=== PATIENT | female | born 1995 | race Caucasian/White ===

== ENCOUNTER 2016-12-14 19:03 | Emergency (ER) | payer BC ==
[2016-12-14 19:25] VITALS: PULSE 86; RESP 16
--- NOTE | 2016-12-14 19:47 | ED ---
General Adult HPI - General Chief complaint: Extremity Injury, Upper Stated complaint: left finger pain Time Seen by Provider: 12/14/16 19:24 Source: patient, RN notes reviewed Mode of arrival: ambulatory Limitations: no limitations - History of Present Illness Initial comments: This is a 21-year-old female who presents to the emergency department with chief complaint of left middle finger injury. Patient states that she jammed her finger approximately 1 month ago and was seen at [facility] urgent care. Patient states that she was told she had no fracture or dislocation. Since that time, she is still experiencing pain and states she is unable to flex her left middle finger. Denies fever, chills, chest pain, shortness of breath, abdominal pain, nausea or vomiting, constipation or diarrhea, dysuria or hematuria, numbness or tingling, headache or vision changes. - Related Data Allergies Allergy/AdvReac Type Severity Reaction Status Date / Time No Known Allergies Allergy Verified 12/14/16 19:25 Review of Systems ROS Statement: Those systems with pertinent positive or pertinent negative responses have been documented in the HPI. ROS Other: All systems not noted in ROS Statement are negative. Past Medical History Past Medical History: No Reported History History of Any Multi-Drug Resistant Organisms: None Reported Past Surgical History: No Surgical Hx Reported Past Psychological History: No Psychological Hx Reported Smoking Status: Never smoker Past Alcohol Use History: None Reported Past Drug Use History: None Reported General Exam - General Exam Comments Initial Comments: General: Awake and alert, well-developed; in no apparent distress. HEENT: Head atraumatic, normocephalic. Pupils are equal, round and reactive to light. Extraocular movements intact. Neck: Supple. Normal ROM. Cardiovascular: Regular rate and rhythm. No murmurs, rubs or gallops. Chest symmetrical. Respiratory: Lungs clear to auscultation bilaterally. No wheezes, rales or rhonchi. Normal respiratory effort with no use of accessory muscles. Musculoskeletal: Unable to flex the PIP joint of left third digit. Partial flexion of the DIP joint is intact. Sensation is intact. Radial pulses are 2+ equal and palpable bilaterally. There is swelling noted at the PIP joint. No erythema. Skin: [place], warm and dry without rashes or lesions. Neurological: Alert and oriented x3. CN II-XII grossly intact. Speech is fluent and answers are appropriate. No focal neuro deficits. Psychiatric: Normal mood and affect. No overt signs of depression or anxiety noted. Limitations: no limitations Course Vital Signs 12/14/16 19:22 Temperature 98.0 F Pulse Rate 86 Respiratory 16 Rate Blood Pressure 145/70 O2 Sat by Pulse 99 Oximetry Procedures - Orthopedic Joint Reduction Joint #1 Consent Obtained: verbal consent Side: left Joint Reduction Location: finger (middle digit) Analgesia: digital block Local Anesthetic Used: Lidocaine 1% Amount of Anesthetic Used (mLs): 2 Technique Used: traction/counter-traction Post-Reduction Neuro Exam: intact Post-Reduction Vascular Exam: intact Post Reduction X-Ray Obtained: Yes Post Reduction X-Ray Results: not reduced Splint Applied: Yes Patient Tolerated Procedure: well, no complications Medical Decision Making - Medical Decision Making This is a 21-year-old female who presents to the emergency department with chief complaint of left middle finger injury. Patient is unable to flex the PIP joint of left third digit. X-ray revealed a partial posterior dislocation at PIP joint and a chip-fracture at anterior base of middle phalanx. Joint reduction was attempted and post-reduction x-ray revealed reduction was unsuccessful. Finger was placed in a splint. Neurovascularly intact. She will be discharged home with a referral to Dr. Del Angel, hand surgery. She was advised to call and follow up within 1-2 days. Patient is in agreement with plan voices understanding. All questions were answered. - Radiology Data Radiology results: report reviewed Left third digit x-ray findings: There is posterior subluxation of the base of the middle phalanx of the middle finger left hand on the lateral view. There is a 4 mm nondisplaced chip fracture of the anterior base. Impression: Intra- articular chip fracture at the anterior base of the middle phalanx. There is a partial posterior dislocation the PIP joint. Soft tissue swelling. Disposition Clinical Impression: Injury of flexor tendon of left hand, Fracture/dislocation, finger, proximal/ middle phalanx Disposition: HOME SELF-CARE Condition: Good Instructions: Tendon Rupture (ED) Additional Instructions: Please follow up with primary care provider within 1-2 days. Return to emergency department if symptoms should worsen or any concerns arise. Referrals: None,Stated [Primary Care Provider] - 1-2 days Arsenio Del Angel DO [Doctor of Osteopathic Medicine] - 1-2 days Time of Disposition: 20:57
--- NOTE | 2016-12-14 19:50 | XR ---
EXAMINATION TYPE: XR finger LT DATE OF EXAM: 12/14/2016 COMPARISON: NONE HISTORY: Pain TECHNIQUE: 3 views FINDINGS: There is posterior subluxation of the base of the middle phalanx of the middle finger left hand on the lateral view. There is a 4 mm nondisplaced chip fracture of the anterior base. IMPRESSION: Intra-articular chip fracture of the anterior base of the middle phalanx. There is a part ial posterior dislocation of the PIP joint. Soft tissue swelling.
--- NOTE | 2016-12-14 20:41 | XR ---
EXAMINATION TYPE: XR finger LT DATE OF EXAM: 12/14/2016 COMPARISON: Today HISTORY: Post reduction TECHNIQUE: 3 views FINDINGS: There is persistent mild posterior subluxation of the base of the middle phalanx phalanx of the middle finger. There is soft tissue swelling. No fracture line is seen. IMPRESSION: Persistent partial posterior dislocation of the PIP joint.
[2016-12-14 21:16] VITALS: BP 145/73; TEMP 97.9
== END 2016-12-14 21:16 | disposition home or self-care (01) ==
LOC: EC 19:03
DX: S66.902A Unspecified injury of unspecified muscle, fascia and tendon at wrist and hand level, left hand, initial encounter (principal); S63.283A Dislocation of proximal interphalangeal joint of left middle finger, initial encounter; S62.653A Nondisplaced fracture of middle phalanx of left middle finger, initial encounter for closed fracture
CPT/HCPCS: 26770; 99283

== ENCOUNTER 2017-02-16 08:58 | Emergency (ER) | payer BC ==
[2017-02-16] MEDS ORDERED: ONDANSETRON ODT 4 MG TAB PO STA (09:15)
--- NOTE | 2017-02-16 09:17 | ED ---
Pediatric Fever HPI - General Chief Complaint: Fever Stated Complaint: Fever Time Seen by Provider: 02/16/17 09:08 Source: patient, RN notes reviewed Mode of arrival: ambulatory Limitations: no limitations - History of Present Illness Initial Comments: This a 21-year-old female presents emergency Department with chief complaint of fever, not feeling well. Patient states symptoms started yesterday with nausea vomiting cough congestion. She states that vomiting has resolved and she still some residual nausea. Patient states she had no contacts with some her symptoms. She states she does feel achy all over. She denies sore throat, ear pain states that she does have mild headache. She tried some NyQuil lateral to him. Patient denies any abdominal pain she states there is a chance . Patient denies any known drug ALLERGIES. - Related Data Home Medications Medication Instructions Recorded Confirmed Dm/Acetaminophen/Doxylamine [Vicks 1 cap PO Q6H PRN 02/16/17 02/16/17 Nyquil Liquicaps] Previous Rx's Medication Instructions Recorded Oseltamivir [Tamiflu] 75 mg PO Q12HR #10 cap 02/16/17 Allergies Allergy/AdvReac Type Severity Reaction Status Date / Time No Known Allergies Allergy Verified 02/16/17 09:16 Review of Systems ROS Statement: Those systems with pertinent positive or pertinent negative responses have been documented in the HPI. ROS Other: All systems not noted in ROS Statement are negative. Past Medical History Past Medical History: No Reported History History of Any Multi-Drug Resistant Organisms: None Reported Past Surgical History: Orthopedic Surgery Additional Past Surgical History / Comment(s): finger Past Psychological History: No Psychological Hx Reported Smoking Status: Never smoker Past Alcohol Use History: None Reported Past Drug Use History: Marijuana General Exam Limitations: no limitations General appearance: alert, in no apparent distress Head exam: Present: atraumatic, normocephalic, normal inspection Eye exam: Present: normal appearance, PERRL, EOMI. Absent: scleral icterus, conjunctival injection, periorbital swelling ENT exam: Present: normal exam, normal oropharynx, mucous membranes moist, TM's normal bilaterally, normal external ear exam Neck exam: Present: normal inspection, full ROM. Absent: tenderness, meningismus, lymphadenopathy Respiratory exam: Present: normal lung sounds bilaterally. Absent: respiratory distress, wheezes, rales, rhonchi, stridor Cardiovascular Exam: Present: regular rate, normal rhythm, normal heart sounds. Absent: systolic murmur, diastolic murmur, rubs, gallop, clicks GI/Abdominal exam: Present: soft, normal bowel sounds. Absent: distended, tenderness, guarding, rebound, rigid Back exam: Absent: CVA tenderness (R), CVA tenderness (L) Skin exam: Present: warm, dry, intact, normal color. Absent: rash Course Vital Signs 02/16/17 08:59 Temperature 99.4 F Pulse Rate 102 H Respiratory 17 Rate Blood Pressure 132/77 O2 Sat by Pulse 98 Oximetry Medical Decision Making - Medical Decision Making 21-year-old female presented for fever cough congestion body aches. Patient has influenza A. Patient we discharged on Tamiflu. Return parameters were discussed. - Lab Data Lab Results 02/16/17 02/16/17 02/16/17 Range/Units 09:18 09:18 09:18 Urine Color Yellow Urine Appearance Clear (Clear) Urine pH 6.0 (5.0-8.0) Ur Specific [place] 1.032 (1.001-1.035) Urine Protein 1+ H (Negative) Urine Glucose (UA) Negative (Negative) Urine Blood Negative (Negative) Urine Nitrite Negative (Negative) Urine Bilirubin Negative (Negative) Urine Urobilinogen 3.0 (<2.0) mg/dL Ur Leukocyte Esterase Negative (Negative) Urine RBC 2 (0-5) /hpf Urine WBC 2 (0-5) /hpf Ur Squamous Epith Cells 2 (0-4) /hpf Urine Bacteria Rare H (None) /hpf Urine Mucus Few H (None) /hpf Urine HCG, Qual Not Detected (Not Detectd) Influenza Type A RNA Detected H (Not Detectd) Influenza Type B (PCR) Not Detected (Not Detectd) Disposition Clinical Impression: Influenza Disposition: HOME SELF-CARE Condition: Stable Instructions: Influenza (ED) Additional Instructions: Please return to the Emergency Department if symptoms worsen or any other concerns. Prescriptions: Oseltamivir [Tamiflu] 75 mg PO Q12HR #10 cap Referrals: None,Stated [Primary Care Provider] - 1-2 days Time of Disposition: 10:36
[2017-02-16 09:32] LABS: Appearance,Urine Clear (Clear); Bacteria,Urine Rare /hpf; Bilirubin,Urine Negative (Negative); Blood,Urine Negative (Negative); Color,Urine Yellow; Glucose,Urine (UA) Negative (Negative); Ketones,Urine 4+ (Negative); Leukocyte Esterase,Urine Negative (Negative); Mucus,Urine Few /hpf; Nitrite,Urine Negative (Negative); Protein,Urine 1+ (Negative); RBC,Urine 2 /hpf (0-5); Specific Gravity,Urine 1.032 (1.001-1.035); Squamous Epithelial Cell,Urine 2 /hpf (0-4); WBC,Urine 2 /hpf (0-5)
[2017-02-16] MEDS ORDERED: OSELTAMIVIR 75 MG CAP PO STA (09:41)
--- NOTE | 2017-02-16 10:18 | XR ---
EXAMINATION TYPE: XR chest 2V DATE OF EXAM: 02/16/2017 COMPARISON: NONE HISTORY: Fever and cough TECHNIQUE: Frontal and lateral views of the chest are obtained. FINDINGS: There is no focal air space opacity, pleural effusion, or pneumothorax seen. The cardiac silhouette size is within normal limits. The osseous structures are intact. Metallic nipple rings a re noted bilaterally. IMPRESSION: No acute cardiopulmonary process.
[2017-02-16 10:59] VITALS: BP 130/70; PULSE 78; RESP 16; TEMP 98.9
== END 2017-02-16 10:58 | disposition home or self-care (01) ==
LOC: EC 08:58
DX: J09.X2 Influenza due to identified novel influenza A virus with other respiratory manifestations (principal)
CPT/HCPCS: 71046; 81001; 81025; 87502; 99283

== ENCOUNTER 2017-06-07 12:16 | Emergency (ER) | payer BC ==
[2017-06-07] MEDS ORDERED: SODIUM CHLORIDE 0.9% 1,000 ML IV STA (13:01)
[2017-06-07] MEDS ORDERED: ONDANSETRON 4 MG/2 ML VIAL IVP STA (13:01)
--- NOTE | 2017-06-07 13:04 | ED ---
Nausea/Vomiting/Diarrhea HPI - General Chief complaint: Nausea/Vomiting/Diarrhea Stated complaint: vomiting Time Seen by Provider: 06/07/17 12:55 Source: patient, RN notes reviewed Mode of arrival: ambulatory Limitations: no limitations - History of Present Illness Initial comments: This is a 21-year-old female who presents to the emergency department with chief complaint of vomiting. Patient states that she developed episodes of vomiting yesterday at 11 AM. She states that while she was vomiting she developed diarrhea. She states that last night between 6 PM and 1 AM she vomited about every half an hour. She denies any sick contacts. Denies abdominal pain, fevers or chills, melena or hematochezia. Chest pain or shortness of breath, dysuria or hematuria. States that her last episode of vomiting was over 1 hour ago. - Related Data Previous Rx's Medication Instructions Recorded Cephalexin [Keflex] 500 mg PO Q12HR #20 cap 06/07/17 Allergies Allergy/AdvReac Type Severity Reaction Status Date / Time No Known Allergies Allergy Verified 06/07/17 12:33 Review of Systems ROS Statement: Those systems with pertinent positive or pertinent negative responses have been documented in the HPI. ROS Other: All systems not noted in ROS Statement are negative. Past Medical History Past Medical History: No Reported History History of Any Multi-Drug Resistant Organisms: None Reported Past Surgical History: Orthopedic Surgery Additional Past Surgical History / Comment(s): finger Past Psychological History: No Psychological Hx Reported Smoking Status: Never smoker Past Alcohol Use History: None Reported Past Drug Use History: Marijuana General Exam - General Exam Comments Initial Comments: General: Awake and alert, well-developed; in no apparent distress. Mother is at bedside. HEENT: Head atraumatic, normocephalic. Pupils are equal, round and reactive to light. Extraocular movements intact. Oropharynx moist without erythema or exudate. Neck: Supple. Normal ROM. Cardiovascular: Regular rate and rhythm. No murmurs, rubs or gallops. Chest symmetrical. Respiratory: Lungs clear to auscultation bilaterally. No wheezes, rales or rhonchi. Normal respiratory effort with no use of accessory muscles. Abdomen: Soft, non-tender, non-distended. No rigidity, rebound or guarding. Normal bowel sounds in all 4 quadrants. Musculoskeletal: Normal ROM, no tenderness bilateral upper and lower extremities. Ambulating normally. Skin: [place], warm and dry without rashes or lesions. Neurological: Alert and oriented x3. CN II-XII grossly intact. Speech is fluent and answers are appropriate. No focal neuro deficits. Psychiatric: Normal mood and affect. No overt signs of depression or anxiety noted. Limitations: no limitations Course Vital Signs 06/07/17 12:31 Temperature 97.8 F Pulse Rate 84 Respiratory 20 Rate Blood Pressure 124/65 O2 Sat by Pulse 98 Oximetry Medical Decision Making - Medical Decision Making This is a 21-year-old female presents to the emergency department with chief complaint of vomiting. Patient states that she has been vomiting and having diarrhea since yesterday. Denies fevers or chills. CBC and CMP were within normal limits. Urine revealed positive hCG. I discussed these findings with patient and her mother. Patient states that she is not having any vaginal bleeding or abdominal pain. UA did reveal bacteria so patient will be started on Keflex for asymptomatic bacteriuria. She will also be given a prescription for vitamins. Patient's vital signs are stable and she is in no acute distress. She will be discharged home at this time. She will be given referral to [facility] and primary care physician. Patient is in agreement with plan and voices understanding. All questions were answered. - Lab Data Result diagrams: 06/07/17 13:10 06/07/17 13:10 Lab Results 06/07/17 06/07/17 06/07/17 Range/Units 13:10 13:10 13:10 WBC 9.7 (4.0-11.0) k/uL RBC 4.74 (3.80-5.40) m/uL Hgb 15.1 (11.4-16.0) gm/dL Hct 42.5 (34.0-46.0) % MCV 89.5 (80.0-100.0) fL MCH 31.9 (25.0-35.0) pg MCHC 35.6 (31.0-37.0) g/dL RDW 12.0 (11.5-15.5) % Plt Count 243 (150-450) k/uL Neutrophils % 89 % Lymphocytes % 7 % Monocytes % 4 % Eosinophils % 0 % Basophils % 0 % Neutrophils # 8.6 H (1.3-7.7) k/uL Lymphocytes # 0.7 L (1.0-4.8) k/uL Monocytes # 0.4 (0-1.0) k/uL Eosinophils # 0.0 (0-0.7) k/uL Basophils # 0.0 (0-0.2) k/uL Sodium 138 (137-145) mmol/L Potassium 3.8 (3.5-5.1) mmol/L Chloride 103 (98-107) mmol/L Carbon Dioxide 24 (22-30) mmol/L Anion Gap 11 mmol/L BUN 13 (7-17) mg/dL Creatinine 0.55 (0.52-1.04) mg/dL Est GFR (CKD-EPI)AfAm >90 (>60 ml/min/1.73 sqM) Est GFR (CKD-EPI)NonAf >90 (>60 ml/min/1.73 sqM) Glucose 118 H (74-99) mg/dL Calcium 9.7 (8.4-10.2) mg/dL Total Bilirubin 0.6 (0.2-1.3) mg/dL AST 22 (14-36) U/L ALT 26 (9-52) U/L Alkaline Phosphatase 58 (38-126) U/L Total Protein 6.8 (6.3-8.2) g/dL Albumin 4.3 (3.5-5.0) g/dL Amylase 57 (30-110) U/L Lipase 55 (23-300) U/L Urine Color Urine Appearance (Clear) Urine pH (5.0-8.0) Ur Specific [place] (1.001-1.035) Urine Protein (Negative) Urine Glucose (UA) (Negative) Urine Ketones (Negative) Urine Blood (Negative) Urine Nitrite (Negative) Urine Bilirubin (Negative) Urine Urobilinogen (<2.0) mg/dL Ur Leukocyte Esterase (Negative) Urine RBC (0-5) /hpf Urine WBC (0-5) /hpf Ur Squamous Epith Cells (0-4) /hpf Urine Bacteria (None) /hpf Urine Mucus (None) /hpf Urine HCG, Qual Detected (Not Detectd) 06/07/17 Range/Units 13:10 WBC (4.0-11.0) k/uL RBC (3.80-5.40) m/uL Hgb (11.4-16.0) gm/dL Hct (34.0-46.0) % MCV (80.0-100.0) fL MCH (25.0-35.0) pg MCHC (31.0-37.0) g/dL RDW (11.5-15.5) % Plt Count (150-450) k/uL Neutrophils % % Lymphocytes % % Monocytes % % Eosinophils % % Basophils % % Neutrophils # (1.3-7.7) k/uL Lymphocytes # (1.0-4.8) k/uL Monocytes # (0-1.0) k/uL Eosinophils # (0-0.7) k/uL Basophils # (0-0.2) k/uL Sodium (137-145) mmol/L Potassium (3.5-5.1) mmol/L Chloride (98-107) mmol/L Carbon Dioxide (22-30) mmol/L Anion Gap mmol/L BUN (7-17) mg/dL Creatinine (0.52-1.04) mg/dL Est GFR (CKD-EPI)AfAm (>60 ml/min/1.73 sqM) Est GFR (CKD-EPI)NonAf (>60 ml/min/1.73 sqM) Glucose (74-99) mg/dL Calcium (8.4-10.2) mg/dL Total Bilirubin (0.2-1.3) mg/dL AST (14-36) U/L ALT (9-52) U/L Alkaline Phosphatase (38-126) U/L Total Protein (6.3-8.2) g/dL Albumin (3.5-5.0) g/dL Amylase (30-110) U/L Lipase (23-300) U/L Urine Color Yellow Urine Appearance Cloudy H (Clear) Urine pH 6.5 (5.0-8.0) Ur Specific [place] 1.033 (1.001-1.035) Urine Protein 1+ H (Negative) Urine Glucose (UA) Negative (Negative) Urine Ketones 1+ H (Negative) Urine Blood Negative (Negative) Urine Nitrite Negative (Negative) Urine Bilirubin Negative (Negative) Urine Urobilinogen 3.0 (<2.0) mg/dL Ur Leukocyte Esterase Negative (Negative) Urine RBC 1 (0-5) /hpf Urine WBC 3 (0-5) /hpf Ur Squamous Epith Cells 1 (0-4) /hpf Urine Bacteria Rare H (None) /hpf Urine Mucus Few H (None) /hpf Urine HCG, Qual (Not Detectd) Disposition Clinical Impression: , Nausea and vomiting, Asymptomatic bacteriuria Disposition: HOME SELF-CARE Condition: Good Instructions: (ED), Nausea and Vomiting in (ED), Urinary Tract Infection in (ED) Additional Instructions: Please follow-up with Dr. Mejia, [facility] within 1-2 days. Please take medications as prescribed. Please follow up with primary care provider within 1- 2 days. Return to emergency department if symptoms should worsen or any concerns arise. Prescriptions: Cephalexin [Keflex] 500 mg PO Q12HR #20 cap Is patient prescribed a controlled substance at d/c from ED?: No Referrals: None,Stated [Primary Care Provider] - 1-2 days Roseline Mejia DO [Doctor of Osteopathic Medicine] - 1-2 days Chantelle Zuluaga MD [REFERRING] - 1-2 days Deepika Santoro MD [REFERRING] - 1-2 days Time of Disposition: 14:14
[2017-06-07 13:26] LABS: Basophils % (A) 0 %; Eosinophils % (A) 0 %; HCT 42.5 % (34.0-46.0); HGB 15.1 gm/dL (11.4-16.0); Lymphocytes # (A) 0.7 k/uL (1.0-4.8); Lymphocytes % (A) 7 %; MCH 31.9 pg (25.0-35.0); MCHC 35.6 g/dL (31.0-37.0); MCV 89.5 fL (80.0-100.0); Mean Platelet Volume 7.3; Monocytes # (A) 0.4 k/uL (0-1.0); Monocytes % (A) 4 %; Neutrophils # (A) 8.6 k/uL (1.3-7.7); Neutrophils % (A) 89 %; Platelet Count 243 k/uL (150-450); RBC 4.74 m/uL (3.80-5.40); WBC 9.7 k/uL (4.0-11.0)
[2017-06-07 13:43] LABS: ALT 26 U/L (9-52); AST 22 U/L (14-36); Albumin 4.3 g/dL (3.5-5.0); Alkaline Phosphatase 58 U/L (38-126); Amylase 57 U/L (30-110); Anion Gap 11 mmol/L; Blood Urea Nitrogen 13 mg/dL (7-17); Calcium 9.7 mg/dL (8.4-10.2); Carbon Dioxide 24 mmol/L (22-30); Chloride 103 mmol/L (98-107); Glucose 118 mg/dL (74-99); Lipase 55 U/L (23-300); Potassium 3.8 mmol/L (3.5-5.1); Sodium 138 mmol/L (137-145); Total Bilirubin 0.6 mg/dL (0.2-1.3); Total Protein 6.8 g/dL (6.3-8.2)
[2017-06-07 13:44] LABS: Appearance,Urine Cloudy (Clear); Bacteria,Urine Rare /hpf; Bilirubin,Urine Negative (Negative); Blood,Urine Negative (Negative); Color,Urine Yellow; Glucose,Urine (UA) Negative (Negative); Ketones,Urine 1+ (Negative); Leukocyte Esterase,Urine Negative (Negative); Mucus,Urine Few /hpf; Nitrite,Urine Negative (Negative); PH, Urine 6.5 (5.0-8.0); Protein,Urine 1+ (Negative); RBC,Urine 1 /hpf (0-5); Specific Gravity,Urine 1.033 (1.001-1.035); Squamous Epithelial Cell,Urine 1 /hpf (0-4); WBC,Urine 3 /hpf (0-5)
[2017-06-07 14:24] VITALS: BP 124/70; PULSE 70; RESP 18; TEMP 98.5
== END 2017-06-07 14:24 | disposition home or self-care (01) ==
LOC: EC 12:16
DX: O21.9 Vomiting of pregnancy, unspecified (principal); R82.71 Bacteriuria; O99.89 Other specified diseases and conditions complicating pregnancy, childbirth and the puerperium; R19.7 Diarrhea, unspecified; Z32.01 Encounter for pregnancy test, result positive; Z3A.00 Weeks of gestation of pregnancy not specified
CPT/HCPCS: 36415; 80053; 82150; 83690; 85025; 81001; 81025; 99284; 96374; 96361; J2405

== ENCOUNTER 2017-06-14 14:03 | Emergency (ER) | payer BC ==
[2017-06-14 14:27] VITALS: RESP 18; TEMP 98
[2017-06-14] MEDS ORDERED: METOCLOPRAMIDE 5 MG/ML 2 ML VIAL IVP STA (16:11)
[2017-06-14] MEDS ORDERED: SODIUM CHLORIDE 0.9% 1,000 ML IV STA (16:11)
--- NOTE | 2017-06-14 16:31 | ED ---
Nausea/Vomiting/Diarrhea HPI - General Chief complaint: Nausea/Vomiting/Diarrhea Stated complaint: Vomiting, dehydrated- Time Seen by Provider: 06/14/17 15:51 Source: patient, RN notes reviewed, old records reviewed Mode of arrival: ambulatory Limitations: no limitations - History of Present Illness Initial comments: Patient is a 21-year-old female presents with vomiting for the past two days. She is approximately seven weeks . She denies any significant and pati pain with this. She reports that she's had a fever chills. Normal bowel habits and urination. - Related Data Previous Rx's Medication Instructions Recorded Cephalexin [Keflex] 500 mg PO Q12HR #20 cap 06/07/17 Metoclopramide [Reglan] 5 mg PO ACHS #15 tab 06/14/17 Pyridoxine HCl (Vitamin B6) 100 mg PO DAILY #10 tablet 06/14/17 [Vitamin B-6] Allergies Allergy/AdvReac Type Severity Reaction Status Date / Time No Known Allergies Allergy Verified 06/14/17 16:13 Review of Systems ROS Statement: Those systems with pertinent positive or pertinent negative responses have been documented in the HPI. ROS Other: All systems not noted in ROS Statement are negative. Constitutional: Denies: fever, chills Eyes: Denies: eye pain ENT: Denies: ear pain, throat pain Respiratory: Denies: cough, dyspnea Cardiovascular: Denies: chest pain Endocrine: Denies: fatigue Gastrointestinal: Reports: nausea, vomiting. Denies: abdominal pain Genitourinary: Denies: urgency, dysuria Musculoskeletal: Denies: back pain Skin: Denies: rash, lesions Past Medical History Past Medical History: No Reported History History of Any Multi-Drug Resistant Organisms: None Reported Past Surgical History: Orthopedic Surgery Additional Past Surgical History / Comment(s): finger Past Psychological History: No Psychological Hx Reported Smoking Status: Never smoker Past Alcohol Use History: None Reported Past Drug Use History: Marijuana General Exam - General Exam Comments Initial Comments: 21 year old female, no distress. Limitations: no limitations General appearance: alert, in no apparent distress Head exam: Present: atraumatic, normocephalic, normal inspection Eye exam: Present: normal appearance, PERRL, EOMI. Absent: scleral icterus, conjunctival injection, periorbital swelling ENT exam: Present: normal exam, mucous membranes moist Neck exam: Present: normal inspection. Absent: tenderness, meningismus, lymphadenopathy Respiratory exam: Present: normal lung sounds bilaterally. Absent: respiratory distress, wheezes, rales, rhonchi, stridor Cardiovascular Exam: Present: regular rate, normal rhythm, normal heart sounds. Absent: systolic murmur, diastolic murmur, rubs, gallop, clicks GI/Abdominal exam: Present: soft, normal bowel sounds. Absent: distended, tenderness, guarding, rebound, rigid Back exam: Present: normal inspection Neurological exam: Present: alert, oriented X3, CN II-XII intact Psychiatric exam: Present: normal affect, normal mood Skin exam: Present: warm, dry, intact, normal color. Absent: rash Course Vital Signs 06/14/17 06/14/17 06/14/17 14:25 17:16 18:56 Temperature 98.0 F Pulse Rate 80 64 65 Respiratory 18 18 18 Rate Blood Pressure 115/65 128/65 148/70 O2 Sat by Pulse 98 98 100 Oximetry Medical Decision Making - Medical Decision Making PAtient was giaven IV fluids, labs obtained. Unremarkable. Ketones in urine, given 2L of fluids. Patient US shows 6 weeks and 2 day old fetus. No complicating factor. She was already placed on antibiotics for bacteriuria in last week, still taking them. Patient advised to take Vitamin B6, and reglan. REturn parameters discused. She feels better after medications. - Lab Data Result diagrams: 06/14/17 16:30 06/14/17 16:30 Lab Results 06/14/17 06/14/17 06/14/17 Range/Units 16:30 16:30 16:30 WBC 8.3 (4.0-11.0) k/uL RBC 4.65 (3.80-5.40) m/uL Hgb 14.5 (11.4-16.0) gm/dL Hct 41.6 (34.0-46.0) % MCV 89.4 (80.0-100.0) fL MCH 31.1 (25.0-35.0) pg MCHC 34.8 (31.0-37.0) g/dL RDW 12.2 (11.5-15.5) % Plt Count 230 (150-450) k/uL Neutrophils % 78 % Lymphocytes % 16 % Monocytes % 4 % Eosinophils % 1 % Basophils % 0 % Neutrophils # 6.4 (1.3-7.7) k/uL Lymphocytes # 1.3 (1.0-4.8) k/uL Monocytes # 0.4 (0-1.0) k/uL Eosinophils # 0.1 (0-0.7) k/uL Basophils # 0.0 (0-0.2) k/uL Sodium 137 (137-145) mmol/L Potassium 4.0 (3.5-5.1) mmol/L Chloride 103 (98-107) mmol/L Carbon Dioxide 22 (22-30) mmol/L Anion Gap 12 mmol/L BUN 8 (7-17) mg/dL Creatinine 0.50 L (0.52-1.04) mg/dL Est GFR (CKD-EPI)AfAm >90 (>60 ml/min/1.73 sqM) Est GFR (CKD-EPI)NonAf >90 (>60 ml/min/1.73 sqM) Glucose 92 (74-99) mg/dL Calcium 9.4 (8.4-10.2) mg/dL Total Bilirubin 0.5 (0.2-1.3) mg/dL AST 19 (14-36) U/L ALT 24 (9-52) U/L Alkaline Phosphatase 51 (38-126) U/L Total Protein 6.5 (6.3-8.2) g/dL Albumin 4.1 (3.5-5.0) g/dL Amylase 56 (30-110) U/L Lipase 51 (23-300) U/L HCG, Quant 69414.0 mIU/mL Urine Color Urine Appearance (Clear) Urine pH (5.0-8.0) Ur Specific [place] (1.001-1.035) Urine Protein (Negative) Urine Glucose (UA) (Negative) Urine Ketones (Negative) Urine Blood (Negative) Urine Nitrite (Negative) Urine Bilirubin (Negative) Urine Urobilinogen (<2.0) mg/dL Ur Leukocyte Esterase (Negative) Urine RBC (0-5) /hpf Urine WBC (0-5) /hpf Ur Squamous Epith Cells (0-4) /hpf Urine Bacteria (None) /hpf Urine Mucus (None) /hpf Urine Yeast (Budding) (None) /hpf Blood Type A Positive Blood Type Recheck No 06/14/17 Range/Units 16:30 WBC (4.0-11.0) k/uL RBC (3.80-5.40) m/uL Hgb (11.4-16.0) gm/dL Hct (34.0-46.0) % MCV (80.0-100.0) fL MCH (25.0-35.0) pg MCHC (31.0-37.0) g/dL RDW (11.5-15.5) % Plt Count (150-450) k/uL Neutrophils % % Lymphocytes % % Monocytes % % Eosinophils % % Basophils % % Neutrophils # (1.3-7.7) k/uL Lymphocytes # (1.0-4.8) k/uL Monocytes # (0-1.0) k/uL Eosinophils # (0-0.7) k/uL Basophils # (0-0.2) k/uL Sodium (137-145) mmol/L Potassium (3.5-5.1) mmol/L Chloride (98-107) mmol/L Carbon Dioxide (22-30) mmol/L Anion Gap mmol/L BUN (7-17) mg/dL Creatinine (0.52-1.04) mg/dL Est GFR (CKD-EPI)AfAm (>60 ml/min/1.73 sqM) Est GFR (CKD-EPI)NonAf (>60 ml/min/1.73 sqM) Glucose (74-99) mg/dL Calcium (8.4-10.2) mg/dL Total Bilirubin (0.2-1.3) mg/dL AST (14-36) U/L ALT (9-52) U/L Alkaline Phosphatase (38-126) U/L Total Protein (6.3-8.2) g/dL Albumin (3.5-5.0) g/dL Amylase (30-110) U/L Lipase (23-300) U/L HCG, Quant mIU/mL Urine Color Yellow Urine Appearance Cloudy H (Clear) Urine pH 7.5 (5.0-8.0) Ur Specific [place] 1.023 (1.001-1.035) Urine Protein 1+ H (Negative) Urine Glucose (UA) Negative (Negative) Urine Ketones 4+ H (Negative) Urine Blood Negative (Negative) Urine Nitrite Negative (Negative) Urine Bilirubin Negative (Negative) Urine Urobilinogen 3.0 (<2.0) mg/dL Ur Leukocyte Esterase Negative (Negative) Urine RBC 6 H (0-5) /hpf Urine WBC 13 H (0-5) /hpf Ur Squamous Epith Cells 2 (0-4) /hpf Urine Bacteria Many H (None) /hpf Urine Mucus Few H (None) /hpf Urine Yeast (Budding) Few H (None) /hpf Blood Type Blood Type Recheck - Radiology Data Radiology results: report reviewed Single IUP is confirmed crown-rump length 0.6 cm, spine was 6 weeks and 2 days. Disposition Clinical Impression: Nausea and vomiting, Disposition: HOME SELF-CARE Condition: Good Instructions: Acute Nausea and Vomiting (ED) Additional Instructions: Patient advised to take the medications to help with nausea. Make sure taking vitamin. Follow-up with primary care provider and RETURN CHECKER. Prescriptions: Metoclopramide [Reglan] 5 mg PO ACHS #15 tab Pyridoxine HCl (Vitamin B6) [Vitamin B-6] 100 mg PO DAILY #10 tablet Is patient prescribed a controlled substance at d/c from ED?: No If prescribed controlled substance>3 days was MAPS reviewed?: No When asked, does pt state using other controlled substances?: No Referrals: None,Stated [Primary Care Provider] - 1-2 days Time of Disposition: 18:36
[2017-06-14 16:44] LABS: Basophils % (A) 0 %; Eosinophils # (A) 0.1 k/uL (0-0.7); Eosinophils % (A) 1 %; HCT 41.6 % (34.0-46.0); HGB 14.5 gm/dL (11.4-16.0); Lymphocytes # (A) 1.3 k/uL (1.0-4.8); Lymphocytes % (A) 16 %; MCH 31.1 pg (25.0-35.0); MCHC 34.8 g/dL (31.0-37.0); MCV 89.4 fL (80.0-100.0); Mean Platelet Volume 7.6; Monocytes # (A) 0.4 k/uL (0-1.0); Monocytes % (A) 4 %; Neutrophils # (A) 6.4 k/uL (1.3-7.7); Neutrophils % (A) 78 %; Platelet Count 230 k/uL (150-450); RBC 4.65 m/uL (3.80-5.40); RDW 12.2 % (11.5-15.5); WBC 8.3 k/uL (4.0-11.0)
[2017-06-14 16:56] LABS: ALT 24 U/L (9-52); AST 19 U/L (14-36); Albumin 4.1 g/dL (3.5-5.0); Alkaline Phosphatase 51 U/L (38-126); Amylase 56 U/L (30-110); Anion Gap 12 mmol/L; Blood Urea Nitrogen 8 mg/dL (7-17); Calcium 9.4 mg/dL (8.4-10.2); Carbon Dioxide 22 mmol/L (22-30); Chloride 103 mmol/L (98-107); Glucose 92 mg/dL (74-99); Lipase 51 U/L (23-300); Sodium 137 mmol/L (137-145); Total Bilirubin 0.5 mg/dL (0.2-1.3); Total Protein 6.5 g/dL (6.3-8.2)
[2017-06-14 17:04] LABS: Appearance,Urine Cloudy (Clear); Bacteria,Urine Many /hpf; Bilirubin,Urine Negative (Negative); Blood,Urine Negative (Negative); Budding Yeast,Urine Few /hpf; Color,Urine Yellow; Glucose,Urine (UA) Negative (Negative); Ketones,Urine 4+ (Negative); Leukocyte Esterase,Urine Negative (Negative); Mucus,Urine Few /hpf; Nitrite,Urine Negative (Negative); PH, Urine 7.5 (5.0-8.0); Protein,Urine 1+ (Negative); RBC,Urine 6 /hpf (0-5); Specific Gravity,Urine 1.023 (1.001-1.035); Squamous Epithelial Cell,Urine 2 /hpf (0-4); WBC,Urine 13 /hpf (0-5)
--- NOTE | 2017-06-14 18:32 | US ---
EXAMINATION TYPE: Transabdominal DATE OF EXAM: 05/08/17 COMPARISON: NONE CLINICAL HISTORY: Pain. EC Patient with nausea and vomiting, diarrhea x 2 days; EXAM PERFORMED: Transabdominal (TA) EXAM MEASUREMENTS: GESTATIONAL AGE / DATING Physician Established: Not yet established Dates by LMP: ( 6 weeks/6 days) EDC: 02/01/2018 Dates by First Scan: No previous.This is first scan. Dates by Current Scan for: (6 weeks/2 days) EDC: 02/05/2018 MATERNAL ANATOMY Uterus: 9.4 x 5.9 x 5.2cm Right Ovary: 2.4 x 1.5 x 1.4cm Left Ovary: 5.4 x 5.4 x 4.8cm Post CDS / Adnexa: wnl Presence of free fluid: no Presence of corpus luteal cyst: in left ovary = 4.1 x 3.5 x 3.9cm Presence of subchorionic bleed: no GESTATION / SURVEY CRL: 0.6cm (6 weeks/2 days) Yolk Sac (normal less than 6mm): 2.9mm Heart Rate: 113 bpm Rhythm: Normal IUP: Viable IUP Date of LMP: 04/27/2017 Beta HcG (if available): NA Single live intrauterine gestation is seen as gestational sac, yolk sac, and pole are identifie d. No free fluid is seen in pelvic cul-de-sac. Both ovaries are identified. Within the left ovary there is a 4.1 cm hypoechoic to anechoic lesion co uld reflect corpus luteal cyst. Consider short-term follow-up ultrasound in 4-6 weeks time to reasses s. IMPRESSION: Single live intrauterine gestation is confirmed, mean crown-rump length is 0.6 cm corresponding to 6 week 2 day old fetus.
[2017-06-14 18:57] VITALS: BP 148/70; PULSE 65
== END 2017-06-14 18:57 | disposition home or self-care (01) ==
LOC: EC 14:03
DX: O21.9 Vomiting of pregnancy, unspecified (principal); Z3A.01 Less than 8 weeks gestation of pregnancy
CPT/HCPCS: 36415; 86900; 86901; 80053; 82150; 83690; 85025; 81001; 84702; 87086; 76801; 99284; 96374; 96361 ×2; J2765

== ENCOUNTER 2017-08-25 14:46 | Emergency (ER) | payer BC ==
[2017-08-25 15:22] VITALS: TEMP 98.1
--- NOTE | 2017-08-25 15:34 | ED ---
General Adult HPI - General Chief complaint: Nausea/Vomiting/Diarrhea Stated complaint: Vomiting Time Seen by Provider: 08/25/17 15:33 Source: patient, RN notes reviewed, old records reviewed Mode of arrival: ambulatory Limitations: no limitations - History of Present Illness Initial comments: This is a 22-year-old female the ER for evaluation. Patient comes in for evaluation of nausea vomiting and . Patient has history of nausea vomiting and . Patient states now she is 17 weeks . She denies abdominal pain no discharge no bleeding. No modifying factors for symptoms at home. No recent change in medications. No fevers. - Related Data Previous Rx's Medication Instructions Recorded Cephalexin [Keflex] 500 mg PO Q12HR #20 cap 06/07/17 Metoclopramide [Reglan] 5 mg PO ACHS #15 tab 06/14/17 Pyridoxine HCl (Vitamin B6) 100 mg PO DAILY #10 tablet 06/14/17 [Vitamin B-6] Allergies Allergy/AdvReac Type Severity Reaction Status Date / Time No Known Allergies Allergy Verified 08/25/17 15:22 Review of Systems ROS Statement: Those systems with pertinent positive or pertinent negative responses have been documented in the HPI. ROS Other: All systems not noted in ROS Statement are negative. Past Medical History Past Medical History: No Reported History History of Any Multi-Drug Resistant Organisms: None Reported Past Surgical History: Orthopedic Surgery Additional Past Surgical History / Comment(s): finger Past Psychological History: No Psychological Hx Reported Smoking Status: Never smoker Past Alcohol Use History: None Reported Past Drug Use History: Marijuana General Exam Limitations: no limitations General appearance: alert, in no apparent distress Head exam: Present: atraumatic, normocephalic, normal inspection Eye exam: Present: normal appearance, PERRL, EOMI. Absent: scleral icterus, conjunctival injection, periorbital swelling ENT exam: Present: normal exam, mucous membranes moist Neck exam: Present: normal inspection. Absent: tenderness, meningismus, lymphadenopathy Respiratory exam: Present: normal lung sounds bilaterally. Absent: respiratory distress, wheezes, rales, rhonchi, stridor Cardiovascular Exam: Present: regular rate, normal rhythm, normal heart sounds. Absent: systolic murmur, diastolic murmur, rubs, gallop, clicks GI/Abdominal exam: Present: soft, normal bowel sounds. Absent: distended, tenderness, guarding, rebound, rigid Extremities exam: Present: normal inspection, full ROM, normal capillary refill. Absent: tenderness, pedal edema, joint swelling, calf tenderness Back exam: Present: normal inspection Neurological exam: Present: alert, oriented X3, CN II-XII intact Psychiatric exam: Present: normal affect, normal mood Skin exam: Present: warm, dry, intact, normal color. Absent: rash Course Vital Signs 08/25/17 15:18 Temperature 98.1 F Pulse Rate 98 Respiratory 16 Rate Blood Pressure 119/54 O2 Sat by Pulse 99 Oximetry - Reevaluation(s) Reevaluation #1: 08/25/17 16:48 Patient's in no acute distress, symptoms now resolved Medical Decision Making - Medical Decision Making 22 female the ER with nausea vomiting and . Symptoms are resolved here in the ER. Patient encouraged dietary changes and can be discharged - Lab Data Result diagrams: 08/25/17 16:09 Lab Results 08/25/17 08/25/17 Range/Units 16:09 16:09 Sodium 135 L (137-145) mmol/L Potassium 3.7 (3.5-5.1) mmol/L Chloride 105 (98-107) mmol/L Carbon Dioxide 23 (22-30) mmol/L Anion Gap 7 mmol/L BUN 8 (7-17) mg/dL Creatinine 0.51 L (0.52-1.04) mg/dL Est GFR (CKD-EPI)AfAm >90 (>60 ml/min/1.73 sqM) Est GFR (CKD-EPI)NonAf >90 (>60 ml/min/1.73 sqM) Glucose 96 (74-99) mg/dL Calcium 9.0 (8.4-10.2) mg/dL Phosphorus 3.4 (2.5-4.5) mg/dL Magnesium 1.8 (1.6-2.3) mg/dL Total Bilirubin 0.5 (0.2-1.3) mg/dL AST 31 (14-36) U/L ALT 48 (9-52) U/L Alkaline Phosphatase 52 (38-126) U/L Total Protein 6.1 L (6.3-8.2) g/dL Albumin 3.7 (3.5-5.0) g/dL Urine Color Yellow Urine Appearance Cloudy H (Clear) Urine pH 6.0 (5.0-8.0) Ur Specific [place] 1.027 (1.001-1.035) Urine Protein 1+ H (Negative) Urine Glucose (UA) Negative (Negative) Urine Blood Negative (Negative) Urine Nitrite Negative (Negative) Urine Bilirubin Negative (Negative) Urine Urobilinogen 2.0 (<2.0) mg/dL Ur Leukocyte Esterase Negative (Negative) Urine WBC 4 (0-5) /hpf Ur Squamous Epith Cells 23 H (0-4) /hpf Urine Bacteria Many H (None) /hpf Urine Mucus Moderate H (None) /hpf Disposition Clinical Impression: Dehydration, Vomiting affecting Disposition: HOME SELF-CARE Condition: Good Instructions: Nausea and Vomiting in (ED) Is patient prescribed a controlled substance at d/c from ED?: No Referrals: None,Stated [Primary Care Provider] - 1-2 days
[2017-08-25] MEDS ORDERED: SODIUM CHLORIDE 0.9% 500 ML IV STA (16:03)
[2017-08-25] MEDS ORDERED: SODIUM CHLORIDE 0.9% 1,000 ML IV STA (16:03)
[2017-08-25] MEDS ORDERED: diphenhydrAMINE 50 MG/ML 1 ML VIAL IVP STA (16:03)
[2017-08-25] MEDS ORDERED: PYRIDOXINE 100 MG/ML 1 ML VIAL IVP STA (16:03)
[2017-08-25] MEDS ORDERED: ONDANSETRON 4 MG/2 ML VIAL IVP STA (16:03)
[2017-08-25 16:32] LABS: Monocytes # (A) 0.4 k/uL (0-1.0); Neutrophils % (A) 91 %; RDW 12.8 % (11.5-15.5)
[2017-08-25 16:46] LABS: ALT 48 U/L (9-52); AST 31 U/L (14-36); Albumin 3.7 g/dL (3.5-5.0); Alkaline Phosphatase 52 U/L (38-126); Anion Gap 7 mmol/L; Blood Urea Nitrogen 8 mg/dL (7-17); Carbon Dioxide 23 mmol/L (22-30); Chloride 105 mmol/L (98-107); Glucose 96 mg/dL (74-99); Magnesium 1.8 mg/dL (1.6-2.3); Phosphorus 3.4 mg/dL (2.5-4.5); Potassium 3.7 mmol/L (3.5-5.1); Sodium 135 mmol/L (137-145); Total Bilirubin 0.5 mg/dL (0.2-1.3); Total Protein 6.1 g/dL (6.3-8.2)
[2017-08-25 16:47] LABS: Appearance,Urine Cloudy (Clear); Bacteria,Urine Many /hpf; Bilirubin,Urine Negative (Negative); Blood,Urine Negative (Negative); Color,Urine Yellow; Glucose,Urine (UA) Negative (Negative); Ketones,Urine 4+ (Negative); Leukocyte Esterase,Urine Negative (Negative); Mucus,Urine Moderate /hpf; Nitrite,Urine Negative (Negative); Protein,Urine 1+ (Negative); Specific Gravity,Urine 1.027 (1.001-1.035); Squamous Epithelial Cell,Urine 23 /hpf (0-4); WBC,Urine 4 /hpf (0-5)
[2017-08-25 16:48] LABS: Basophils % (A) 0 %; Eosinophils % (A) 0 %; HCT 40.9 % (34.0-46.0); Lymphocytes # (A) 0.4 k/uL (1.0-4.8); Lymphocytes % (A) 4 %; MCH 31.7 pg (25.0-35.0); MCHC 34.2 g/dL (31.0-37.0); MCV 92.8 fL (80.0-100.0); Mean Platelet Volume 7.2; Monocytes % (A) 4 %; Neutrophils # (A) 9.9 k/uL (1.3-7.7); Platelet Count 188 k/uL (150-450); WBC 10.9 k/uL (3.8-10.6)
[2017-08-25] MEDS ORDERED: METOCLOPRAMIDE 5 MG/ML 2 ML VIAL IVP STA (16:54)
[2017-08-25 17:03] VITALS: BP 114/66; PULSE 90; RESP 18
== END 2017-08-25 17:02 | disposition home or self-care (01) ==
LOC: EC 14:46
DX: O21.1 Hyperemesis gravidarum with metabolic disturbance (principal); Z3A.17 17 weeks gestation of pregnancy; Z98.890 Other specified postprocedural states
CPT/HCPCS: 36415; 80053; 83735; 84100; 85025; 81001; 87086; 99284; 96374; 96375 ×3; 96361; J1200; J3415; J2765; J2405

== ENCOUNTER 2018-01-16 22:40 | Observation (INO) | payer BC ==
[2018-01-16] MEDS ORDERED: ONDANSETRON 4 MG/2 ML VIAL IVP STA (23:04)
[2018-01-16 23:46] LABS: Basophils % (A) 0 %; Eosinophils # (A) 0.1 k/uL (0-0.7); Eosinophils % (A) 1 %; HCT 40.9 % (34.0-46.0); HGB 13.1 gm/dL (11.4-16.0); Lymphocytes # (A) 0.3 k/uL (1.0-4.8); Lymphocytes % (A) 3 %; MCH 27.5 pg (25.0-35.0); Mean Platelet Volume 8.1; Monocytes # (A) 0.3 k/uL (0-1.0); Monocytes % (A) 3 %; Neutrophils # (A) 9.2 k/uL (1.3-7.7); Neutrophils % (A) 92 %; Platelet Count 256 k/uL (150-450); RBC 4.75 m/uL (3.80-5.40); RDW 14.1 % (11.5-15.5)
[2018-01-16] MEDS: LACTATED RINGERS 1,000 ML IV SCH ×2 (23:46→23:50)
[2018-01-17 00:02] LABS: Anion Gap 9 mmol/L; Blood Urea Nitrogen 14 mg/dL (7-17); Calcium 8.8 mg/dL (8.4-10.2); Carbon Dioxide 17 mmol/L (22-30); Chloride 109 mmol/L (98-107); Glucose 138 mg/dL (74-99); Potassium 4.3 mmol/L (3.5-5.1); Sodium 135 mmol/L (137-145)
[2018-01-17 00:07] LABS: Appearance,Urine Clear (Clear); Bacteria,Urine Rare /hpf; Bilirubin,Urine 1+ (Negative); Blood,Urine Negative (Negative); Color,Urine Yellow; Glucose,Urine (UA) Negative (Negative); Ketones,Urine 3+ (Negative); Leukocyte Esterase,Urine Negative (Negative); Mucus,Urine Many /hpf; Nitrite,Urine Negative (Negative); Protein,Urine 1+ (Negative); RBC,Urine 2 /hpf (0-5); Specific Gravity,Urine 1.031 (1.001-1.035); Squamous Epithelial Cell,Urine 3 /hpf (0-4); WBC,Urine 3 /hpf (0-5)
[2018-01-17 03:35] VITALS: BMI 29.9
[2018-01-17] MEDS: LACTATED RINGERS 1,000 ML IV SCH ×3 (03:37→05:59)
[2018-01-17] MEDS: ONDANSETRON 4 MG/2 ML VIAL IVP PRN ×2 (05:58→14:38)
[2018-01-17] MEDS ORDERED: LOPERAMIDE 2 MG CAP PO PRN (11:16)
[2018-01-17 12:22] VITALS: RESP 18
[2018-01-17 15:45] VITALS: BP 112/64; PULSE 87; TEMP 98.6
--- NOTE | 2018-01-31 07:48 | P.MSEPDOC ---
Presenting Problems - Arrival Data Date of Arrival on Unit: 01/16/18 Time of Arrival on Unit: 22:40 Mode of Transport: Wheelchair - Complaint OB-Reason for Admission/Chief Complaint: Acute Nausea/Vomiting Medical History - Information : 1 Para: 0 Term: 0 : 0 Abortions: Spontaneous or Elective: 0 Number of Living Children: 0 - Gestational Age Gestational Age by KATJA (wks/days): 37 Weeks and 6 Days Review of Systems - Review of Systems Constitutional: No problems Breast: No problems ENT: No problems Cardiovascular: No problems Respiratory: No problems Gastrointestinal: Diarrhea Genitourinary: No problems Musculoskeletal: No problems Neurological: No problems Skin: No problems Vital Signs - Temperature Temperature: 98.6 F Temperature Source: Oral - Pulse Right Supine Brachial Pulse Rate: 87 Pulse Assessment Method: Automatic Cuff - Respirations Respiratory Rate: 18 Oxygen Delivery Method: Room Air - Blood Pressure Right Arm Supine Blood Pressure: 112/64 Blood Pressure Mean: 80 Blood Pressure Source: Automatic Cuff Medical Screen Scoring (Pre) - Cervical Exam Dilation: Exam Deferred Effacement: Exam Deferred - Uterine Contractions Frequency: > or = 36 weeks =2 Duration: > 40 seconds = 2 - Maternal Vital Signs Maternal Temperature: N/A Maternal Blood Pressure: N/A Signs of Preeclampsia: N/A Maternal Respirations: N/A - Pain Assessment Pain Scale Used: Numeric (1 - 10) Pain Intensity: 0 Pain Behavior: None Exhibited - Assessment Baseline FHR: 130 - Total Score Total Score (Pre): 4 - Level of Risk Level of Risk: Low (0-5) Physician Notification (Pre) - Physician Notified Physician Notified Date: 01/16/18 Physician Notified Time: 23:00 Physician/Practitioner Notifed:: Dr Gallo Spoke With: Dr Gallo New Order Received: Yes - Notification Comment Comment: CBC, UA, BMP, TSH, Zofran and IV of LR Medical Screen Scoring (Post) - Cervical Exam Dilation: 1-3 cm = 1 - Uterine Contractions Frequency: > or = 36 weeks =2 - Maternal Vital Signs Maternal Temperature: N/A Maternal Blood Pressure: N/A Signs of Preeclampsia: N/A - Pain Assessment Pain Intensity: 0 Pain Behavior: None Exhibited - Maternal Trauma Maternal Trauma: N/A - Assessment Heart Rate: 130 Heart Rate - NICHD Category: Category I (Normal) = 0 NST: Reactive - Total Score Total Score (Post): 3 - Post Treatment Level of Risk Post Treatment Level of Risk: Low (0-5) Physician Notification (Post) - Physician Notified Physician Notified Date: 01/17/18 Physician Notified Time: 01:30 Physician/Practitioner Notified:: Dr Gallo Spoke With: Dr Gallo New Order Received: Yes - Notification Comment Comment: admit for OBV Disposition - Disposition OB Disposition: Admit, Observe, LDRP Suite Discharge Date: 01/17/18 Discharge Time: 16:50 I agree with the RN Medical Screening Exam: Yes Risk & Benefit of care provided described in d/c instruction: Yes Diagnosis: DEHYDRATION
== END 2018-01-17 16:50 | disposition home or self-care (01) ==
LOC: FBPOP 22:40 → 4FBP 01-17 01:42
PROVIDERS: ADMIT Obstetrics & Gynecology; ATTEND Obstetrics & Gynecology
DX: O99.283 Endocrine, nutritional and metabolic diseases complicating pregnancy, third trimester (principal); E86.0 Dehydration; O21.2 Late vomiting of pregnancy; R19.7 Diarrhea, unspecified; Z3A.37 37 weeks gestation of pregnancy
CPT/HCPCS: 59025; 96376; 99214; 96374; 80048; 84443; 85025; 81001; G0378; J2405 ×2; 96360; 96361; 96375

== ENCOUNTER 2018-01-21 20:20 | Inpatient (IN) | payer BC, OTHER ==
[2018-01-21] MEDS ORDERED: ceFAZolin IN SWFI 2 GM/20 ML SYRINGE IVP ONE (21:00)
[2018-01-21] MEDS ORDERED: CITRIC ACID-SODIUM CITRATE 15 ML CUP PO ONE (21:00)
[2018-01-21] MEDS ORDERED: LACTATED RINGERS 1,000 ML IV ONE (21:00)
[2018-01-21] MEDS ORDERED: ONDANSETRON 4 MG/2 ML VIAL ONE (21:04)
[2018-01-21] MEDS ORDERED: SUCCINYLCHOLINE CHLORIDE 100 MG/5 ML SYR IV ONE (21:04)
[2018-01-21] MEDS ORDERED: PROPOFOL 10 MG/ML 20 ML VIAL IV ONE (21:04)
[2018-01-21] MEDS ORDERED: OXYTOCIN 10 UNIT/ML 1 ML VIAL ONE (21:04)
[2018-01-21] MEDS ORDERED: fentaNYL (PF) 50 MCG/ML 2 ML AMP ONE (21:04)
[2018-01-21] MEDS ORDERED: KETOROLAC 30 MG/ML 1 ML VIAL ONE (21:04)
[2018-01-21] MEDS ORDERED: HYDROmorphone (PF) 1 MG/ML ONE (21:04)
[2018-01-21 21:16] LABS: Basophils % (A) 0 %; Eosinophils # (A) 0.1 k/uL (0-0.7); Eosinophils % (A) 1 %; HCT 39.3 % (34.0-46.0); HGB 12.8 gm/dL (11.4-16.0); Lymphocytes # (A) 1.7 k/uL (1.0-4.8); Lymphocytes % (A) 25 %; MCHC 32.6 g/dL (31.0-37.0); Monocytes # (A) 0.4 k/uL (0-1.0); Monocytes % (A) 7 %; Neutrophils # (A) 4.2 k/uL (1.3-7.7); Neutrophils % (A) 63 %; Platelet Count 210 k/uL (150-450); RBC 4.57 m/uL (3.80-5.40); RDW 14.3 % (11.5-15.5); WBC 6.6 k/uL (3.8-10.6)
[2018-01-21 21:41] LABS: Amphetamine Screen,Urine Not Detected (NotDetected); Barbiturate Screen,Urine Not Detected (NotDetected); Benzodiazepines Screen,Urine Not Detected (NotDetected); Cocaine Screen,Urine Not Detected (NotDetected); Methadone Screen, Urine Not Detected (NotDetected); Opiate Screen,Urine Not Detected (NotDetected); Oxycodone Screen, Urine Not Detected (NotDetected); Phencyclidine Screen,Urine Not Detected (NotDetected); Tricyclic Antidepressant,Urine Not Detected (NotDetected); Urn Cannabinoid Scrn Not Detected (NotDetected)
[2018-01-21] MEDS ORDERED: diphenhydrAMINE 25 MG CAP PO PRN (21:41)
[2018-01-21] MEDS ORDERED: ACETAMINOPHEN TAB 325 MG TAB PO PRN (21:41)
[2018-01-21] MEDS ORDERED: METOCLOPRAMIDE 5 MG/ML 2 ML VIAL IVP PRN (21:41)
[2018-01-21] MEDS ORDERED: ONDANSETRON 4 MG/2 ML VIAL IVP PRN (21:41)
[2018-01-21] MEDS ORDERED: ZOLPIDEM 5 MG TAB PO PRN (21:41)
[2018-01-21] MEDS ORDERED: diphenhydrAMINE 50 MG CAP PO PRN (21:41)
[2018-01-21] MEDS ORDERED: KETOROLAC 30 MG/ML 1 ML VIAL IVP PRN (21:41)
[2018-01-21] MEDS ORDERED: diphenhydrAMINE 50 MG/ML 1 ML VIAL IVP PRN ×2 (21:41)
[2018-01-21] MEDS ORDERED: NALOXONE 0.4 MG/ML 1 ML VIAL IV PRN (21:41)
--- NOTE | 2018-01-21 21:46 | P.HPOB ---
History of Present Illness H&P Date: 01/21/18 Chief Complaint: Intrauterine at term: Vaginal bleeding Patient is a 22-year-old at 38 weeks gestation who arrives complaining of vaginal bleeding. She relates that is examined by Dr. Pichardo this morning but had no bleeding until early this evening. She says [place] at the mall walking around doing some shopping and then noticed that she had some bleeding she was brought to labor and delivery at which point a significant quantity of vaginal bleeding was noted and it was noted to be active. I did do a sterile speculum exam as she denied placenta previa and I did verify that with ultrasound reports from her chart. However with the sterile spec exam large quantity of bright red blood and clot was noted and as she was closed in the office today significant concern over a placental abruption was made. Due to this finding a decision to do an urgent section was made. The heart tones were category 1 tracing with a baseline between 116 and 122. There were accelerations to this baseline indicating likely stability at least at the moment, however as an abruption can turn dramatic in a negative way very rapidly a decision to have her under a general anesthetic was made due to the fact that she had not had any IV. Fluids and that she had just eaten a little earlier in the evening as well as for expedience. Her pertinent labs include A + blood type, Rh antibody negative, rubella immune, hepatitis B surface antigen and RPR and HIV were all nonreactive. Past Medical History Past Medical History: No Reported History History of Any Multi-Drug Resistant Organisms: None Reported Past Surgical History: Orthopedic Surgery Additional Past Surgical History / Comment(s): finger Smoking Status: Never smoker - Past Family History Mother Family Medical History: No Reported History Medications and Allergies Home Medications Medication Instructions Recorded Confirmed Type Pyridoxine HCl (Vitamin B6) 100 mg PO DAILY #10 tablet 06/14/17 01/16/18 Rx [Vitamin B-6] Pedi Multivit No.25/Folic Acid 1 tab PO ONCE 01/16/18 01/16/18 History [Flintstones Multivit Chew Tab] Allergies Allergy/AdvReac Type Severity Reaction Status Date / Time No Known Allergies Allergy Verified 01/21/18 20:46 Exam Osteopathic Statement: *. No significant issues noted on an osteopathic structural exam other than those noted in the History and Physical/Consult. Intake and Output 01/21/18 01/21/18 01/21/18 06:59 14:59 22:59 Other: Weight 81.193 kg - OBG Physical Exam Abdomen: bowel sounds normal, no diffuse tenderness, no bruit present, no guarding noted, no hepatomegaly, no splenomegaly, no mass Vulva: both: normal Vagina: Limited visibility due to blood Cervix: Could not visualize cervix and no digital exam was done due to heavy bleeding Uterus: Gravid uterus is noted Heart regular, lungs clear, extremities are without pain Results Result Diagrams: 01/21/18 21:00
--- NOTE | 2018-01-21 21:49 | P.OP ---
Date of Procedure: 01/21/18 Preoperative Diagnosis: Intrauterine at term: Vaginal bleeding Postoperative Diagnosis: Same with suspected abruption Procedure(s) Performed: Primary low transverse section Anesthesia: SCOTTY Surgeon: Reuben Gallo Civil Drafting Technician #1: Tru Dooley Estimated Blood Loss (ml): 800 IV fluids (ml): 800 Urine output (ml): 50 Pathology: other (Placenta) Condition: stable Disposition: floor Operative Findings: Male delivered viable scores and weight are pending however baby is stable following delivery Description of Procedure: Patient was taken to the operating suite where a general anesthetic was found be adequate. She was prepped and draped in the normal sterile fashion placed in the dorsal supine position with leftward tilt. Initially a Pfannenstiel skin incision was made and this incision was then carried through to the underlying layer of the fashion. Fascia was then nicked in the midline and this opening was extended laterally with Petersen scissors. Superior and inferior aspect of this incision were then grasped tented up and bluntly and sharply dissected off the rectus muscles. Rectus muscles were then divided the midline and sharp dissection through the peritoneum was made. This opening was then extended inferiorly with good visualization of both bowel bladder. Bladder blade was then placed and the bladder flap identified. It was entered sharply with Metzenbaum scissors and this opening was extended across the face of the uterus and the bladder was bluntly dissected out of the operative field. Knife was then used to incise the uterus and the uterine incision was fully developed with hemostat. Incision was then bluntly extended and head was atraumatically delivered. Mouth nares were then bulb suctioned and the anterior and posterior shoulders were easily delivered with gentle downward and upward traction. Nursery personnel was present to assume care. Umbilical cord was then clamped cut usual fashion. Once this was accomplished placenta was then delivered intact and Pitocin was added to the IV. Uterus was then exteriorized cleared of clots and debris and closed in 2 layers with 0 Vicryl suture. Once excellent hemostasis was obtained blood and debris was suctioned from the posterior cul-de-sac and the uterus was reinserted into the abdomen. Peritoneal layer was then closed with 0 Vicryl suture fascial layer was closed with 0 Vicryl suture. One layer of 3-0 Vicryl was placed in deep subcuticular tissues to reapproximate the skin and then the skin was closed [place]. Sponge , lap, needle counts were all correct 2. Patient was then taken to the recovery room in stable and satisfactory condition.
[2018-01-21] MEDS: HYDROmorphone PCA 5 MG/25 ML SYRINGE IV PRN (22:13)
[2018-01-21 23:41] VITALS: BMI 29.7
[2018-01-22] MEDS: LACTATED RINGERS 1,000 ML IV SCH ×4 (01:06→07:08)
[2018-01-22] MEDS: HYDROmorphone PCA 5 MG/25 ML SYRINGE IV PRN (03:54)
[2018-01-22 06:58] LABS: Basophils % (A) 0 %; Eosinophils % (A) 0 %; HCT 29.9 % (34.0-46.0); Lymphocytes # (A) 1.1 k/uL (1.0-4.8); Lymphocytes % (A) 11 %; MCH 27.7 pg (25.0-35.0); MCHC 32.4 g/dL (31.0-37.0); MCV 85.7 fL (80.0-100.0); Mean Platelet Volume 8.2; Monocytes # (A) 0.4 k/uL (0-1.0); Monocytes % (A) 4 %; Neutrophils # (A) 8.7 k/uL (1.3-7.7); Neutrophils % (A) 84 %; Platelet Count 169 k/uL (150-450); RDW 14.3 % (11.5-15.5); WBC 10.4 k/uL (3.8-10.6)
[2018-01-22 07:12] LABS: HGB 9.7 gm/dL (11.4-16.0)
[2018-01-22] MEDS: SENNOSIDES-DOCUSATE SODIUM 1 EACH TAB PO SCH ×2 (08:26→20:14)
[2018-01-22] MEDS: IBUPROFEN 600 MG TAB PO PRN (15:40)
[2018-01-22] MEDS: HYDROcodone/APAP 7.5-325MG 1 EACH TAB PO PRN (20:14)
[2018-01-23] MEDS: IBUPROFEN 600 MG TAB PO PRN ×3 (00:11→19:35)
[2018-01-23] MEDS: HYDROcodone/APAP 7.5-325MG 1 EACH TAB PO PRN ×3 (06:41→23:36)
--- NOTE | 2018-01-23 07:04 | P.PNOBGPC ---
Subjective - Subjective Principal diagnosis: Status post primary low transverse postoperative day #2 Interval history: Patient seen and examined. Denies nausea, vomiting, chest pain, shortness of breath or calf pain. Pain is controlled with [place] and Motrin. She is passing flatus and tolerating regular diet. Patient reports: Reports appetite normal, Reports voiding normally, Reports pain well controlled, Reports ambulating normally : doing well Objective - Vital Signs Latest vital signs: Vital Signs Temp Pulse Resp BP Pulse Ox 01/23/18 00:00 98.3 F 97 14 120/72 01/22/18 20:00 98.5 F 99 14 136/72 01/22/18 15:35 98.6 F 111 H 18 143/83 99 01/22/18 12:00 98.2 F 100 18 129/71 01/22/18 08:00 98.4 F 105 H 20 142/84 98 Intake and Output 01/22/18 01/23/18 01/23/18 22:59 06:59 14:59 Other: # Voids 1 2 - Exam Lungs: bilateral: normal Chest: Normal S1, Normal S2 Extremities: Present: normal Abdomen: Present: normal appearance, soft. Absent: distention, tenderness Incision: Present: normal, dry, intact Uterus: Present: normal, firm - Labs Labs: Abnormal Lab Results - Last 24 Hours (Table) 01/22/18 Range/Units 06:26 RBC 3.50 L (3.80-5.40) m/uL Hgb 9.7 L D (11.4-16.0) gm/dL Hct 29.9 L (34.0-46.0) % Neutrophils # 8.7 H (1.3-7.7) k/uL Assessment and Plan (1) Status post primary low transverse section Current Visit: Yes Status: Acute Code(s): Z98.891 - HISTORY OF UTERINE SCAR FROM PREVIOUS SURGERY SNOMED Code(s): 738235354 Plan: 1. Increase ambulation 2. Continue postoperative management
--- NOTE | 2018-01-23 07:05 | P.PNOBGPC ---
Subjective - Subjective Principal diagnosis: Status post primary low transverse postoperative day #1 Interval history: Patient seen and examined. She has not passed flatus yet but tolerating clears. Denies nausea, vomiting, chest pain, shortness of breath or calf pain. Patient reports: Reports appetite normal, Reports voiding normally, Reports pain well controlled : doing well Objective - Vital Signs Latest vital signs: Vital Signs Temp Pulse Resp BP Pulse Ox 01/23/18 00:00 98.3 F 97 14 120/72 01/22/18 20:00 98.5 F 99 14 136/72 01/22/18 15:35 98.6 F 111 H 18 143/83 99 01/22/18 12:00 98.2 F 100 18 129/71 01/22/18 08:00 98.4 F 105 H 20 142/84 98 Intake and Output 01/22/18 01/23/18 01/23/18 22:59 06:59 14:59 Other: # Voids 1 2 - Exam Lungs: bilateral: normal Chest: Normal S1, Normal S2 Extremities: Present: normal Abdomen: Present: normal appearance, soft. Absent: distention, tenderness Incision: Present: normal, dry, intact Uterus: Present: normal, firm - Labs Labs: Abnormal Lab Results - Last 24 Hours (Table) 01/22/18 Range/Units 06:26 RBC 3.50 L (3.80-5.40) m/uL Hgb 9.7 L D (11.4-16.0) gm/dL Hct 29.9 L (34.0-46.0) % Neutrophils # 8.7 H (1.3-7.7) k/uL Assessment and Plan (1) Status post primary low transverse section Current Visit: Yes Status: Acute Code(s): Z98.891 - HISTORY OF UTERINE SCAR FROM PREVIOUS SURGERY SNOMED Code(s): 909329209 Plan: 1. Increase ambulation 2. Regular diet with flatus 3. Move towards by mouth pain meds
[2018-01-23] MEDS: SENNOSIDES-DOCUSATE SODIUM 1 EACH TAB PO SCH ×2 (10:40→19:35)
[2018-01-24] MEDS: IBUPROFEN 600 MG TAB PO PRN (07:21)
[2018-01-24 08:46] VITALS: BP 129/62; PULSE 90; RESP 16; TEMP 98.4
--- NOTE | 2018-01-24 09:23 | P.DS ---
Providers Date of admission: 01/21/18 20:51 Expected date of discharge: 01/24/18 Attending physician: Alexus Pichardo Primary care physician: Alexus Pichardo - Discharge Diagnosis(es) (1) Status post primary low transverse section Current Visit: Yes Status: Acute Hospital Course: Pt presented full term with vaginal bleeding. She underwent primary low transverse for abruption and remote from delivery. Her post operative course was uncomplicated. She'll be discharged home postoperative day #3 in stable condition to follow-up with me in one week. Plan - Discharge Summary New Discharge Prescriptions: New HYDROcodone/APAP 7.5-325MG [[place]ila 7.5-325] 1 each PO Q4H PRN #18 tab PRN Reason: Pain Ibuprofen [Motrin] 600 mg PO Q6HR PRN #30 tab PRN Reason: Mild Pain Or Fever >= 100.5 No Action Pyridoxine HCl (Vitamin B6) [Vitamin B-6] 100 mg PO DAILY #10 tablet Pedi Multivit No.25/Folic Acid [Flintstones Multivit Chew Tab] 1 tab PO ONCE Discharge Medication List Pyridoxine HCl (Vitamin B6) [Vitamin B-6] 100 mg PO DAILY #10 tablet 06/14/17 [ Rx] Pedi Multivit No.25/Folic Acid [Flintstones Multivit Chew Tab] 1 tab PO ONCE 01/22 [History] HYDROcodone/APAP 7.5-325MG [Kila 7.5-325] 1 each PO Q4H PRN #18 tab 01/23/18 [ Rx] Ibuprofen [Motrin] 600 mg PO Q6HR PRN #30 tab 01/23/18 [Rx] Follow up Appointment(s)/Referral(s): Alexus Pichardo DO [Primary Care Provider] - 1 Week Discharge Disposition: HOME SELF-CARE
[2018-01-24] MEDS: SENNOSIDES-DOCUSATE SODIUM 1 EACH TAB PO SCH (10:55)
== END 2018-01-24 11:25 | disposition home or self-care (01) | DRG 788 ==
LOC: FBPOP 20:20 → 4FBP 20:51
PROVIDERS: ADMIT Obstetrics & Gynecology; ATTEND Obstetrics & Gynecology
PROC: 10D00Z1 Extraction of Products of Conception, Low, Open Approach (ICD-10-PCS; principal; 2018-01-21 21:12)
DX: O45.93 Premature separation of placenta, unspecified, third trimester (principal); Z37.0 Single live birth; Z3A.38 38 weeks gestation of pregnancy
CPT/HCPCS: 59025; 80306; 85025; 86850; 86900; 86901; 88307; 99215

== ENCOUNTER 2018-11-23 15:12 | Emergency (ER) | payer BC ==
[2018-11-23 15:18] VITALS: RESP 16
[2018-11-23] MEDS ORDERED: LORazepam 1 MG TAB PO STA (15:37)
--- NOTE | 2018-11-23 15:44 | ED ---
General Adult HPI - General Chief complaint: Anxiety Stated complaint: Anxiety Time Seen by Provider: 11/23/18 15:25 Source: patient, RN notes reviewed Mode of arrival: ambulatory Limitations: no limitations - History of Present Illness Initial comments: 23-year-old female presents to the emergency determine for chief complaint of anxiety. Patient states that she thinks she is having an anxiety attack. States that she is nauseous and lightheaded and breathing quickly rates it has been ongoing for a couple hours. States that she broke up with her boyfriend last night and cannot get herself under control. Denies any thoughts of harming herself or anyone else. Denies any suicidal thoughts.Patient has no other complaints at this time including shortness of breath, chest pain, abdominal pain, nausea or vomiting, headache, or visual changes. - Related Data Home Medications Medication Instructions Recorded Confirmed No Known Home Medications 11/23/18 11/23/18 Allergies Allergy/AdvReac Type Severity Reaction Status Date / Time No Known Allergies Allergy Verified 11/23/18 16:13 Review of Systems ROS Statement: Those systems with pertinent positive or pertinent negative responses have been documented in the HPI. ROS Other: All systems not noted in ROS Statement are negative. Past Medical History Past Medical History: No Reported History History of Any Multi-Drug Resistant Organisms: None Reported Past Surgical History: Orthopedic Surgery Additional Past Surgical History / Comment(s): finger Past Anesthesia/Blood Transfusion Reactions: No Reported Reaction Past Psychological History: Anxiety Smoking Status: Never smoker - Past Family History Mother Family Medical History: No Reported History General Exam Limitations: no limitations General appearance: alert, anxious (tearful) Head exam: Present: atraumatic, normocephalic, normal inspection Eye exam: Present: normal appearance, PERRL, EOMI. Absent: scleral icterus, conjunctival injection ENT exam: Present: normal exam, mucous membranes moist Neck exam: Present: normal inspection, full ROM. Absent: tenderness, meningismus, lymphadenopathy Respiratory exam: Present: normal lung sounds bilaterally. Absent: respiratory distress, wheezes, rales, rhonchi, stridor Cardiovascular Exam: Present: regular rate, normal rhythm, normal heart sounds. Absent: systolic murmur, diastolic murmur, rubs, gallop, clicks Course Vital Signs 11/23/18 15:16 Temperature 97.7 F Pulse Rate 82 Respiratory 16 Rate Blood Pressure 124/84 O2 Sat by Pulse 98 Oximetry Medical Decision Making - Medical Decision Making Patient given Ativan, feeling much better. Patient again denies any thoughts of harming herself or suicidal thoughts. Patient has her friend at bedside and will be getting a ride home with her. Patient is comfortable going home. I did give patient outpatient referrals for mental health including the mobile crisis line. She will return if she has any worsening symptoms. Disposition Clinical Impression: Situational anxiety Disposition: HOME SELF-CARE Instructions (If sedation given, give patient instructions): Generalized Anxiety Disorder (ED) Additional Instructions: Please follow-up with referrals given to you as well as primary care. You may also call the mobile crisis hotline which is at the bottom of the referral shee t. Please return to the emergency department if you have any worsening symptoms. Is patient prescribed a controlled substance at d/c from ED?: No Referrals: Chantelle Zuluaga MD [REFERRING] - 1-2 days Time of Disposition: 17:25
[2018-11-23 17:30] VITALS: BP 128/87; PULSE 81; TEMP 98
== END 2018-11-23 17:29 | disposition home or self-care (01) ==
LOC: EC 15:12
DX: F41.8 Other specified anxiety disorders (principal)
CPT/HCPCS: 99283

== ENCOUNTER 2019-09-02 21:49 | Observation (INO) | payer BC, OTHER ==
[2019-09-02] MEDS ORDERED: ONDANSETRON 4 MG/2 ML VIAL IVP STA (22:14)
[2019-09-02] MEDS ORDERED: SODIUM CHLORIDE 0.9% 1,000 ML IV ONE (22:14)
[2019-09-02 22:45] LABS: Appearance,Urine Clear (Clear); Basophils % (A) 0 %; Bilirubin,Urine Negative (Negative); Blood,Urine Negative (Negative); Color,Urine Yellow; Eosinophils # (A) 0.2 k/uL (0-0.7); Eosinophils % (A) 2 %; Glucose,Urine (UA) Negative (Negative); HCT 42.4 % (34.0-46.0); HGB 14.4 gm/dL (11.4-16.0); Ketones,Urine Negative (Negative); Leukocyte Esterase,Urine Negative (Negative); Lymphocytes # (A) 2.5 k/uL (1.0-4.8); Lymphocytes % (A) 32 %; MCH 30.9 pg (25.0-35.0); MCHC 33.9 g/dL (31.0-37.0); MCV 91.1 fL (80.0-100.0); Mean Platelet Volume 7.4; Monocytes # (A) 0.5 k/uL (0-1.0); Monocytes % (A) 6 %; Neutrophils # (A) 4.6 k/uL (1.3-7.7); Neutrophils % (A) 58 %; Nitrite,Urine Negative (Negative); PH, Urine 5.5 (5.0-8.0); Platelet Count 273 k/uL (150-450); Protein,Urine Negative (Negative); RBC 4.65 m/uL (3.80-5.40); RDW 12.4 % (11.5-15.5); Specific Gravity,Urine 1.031 (1.001-1.035); Urobilinogen,Urine <2.0 mg/dL (<2.0)
[2019-09-02 22:59] LABS: ALT 27 U/L (4-34); AST 30 U/L (14-36); African American GFR (CKD) >90 (>60 ml/min/1.73 sqM); Albumin 4.2 g/dL (3.5-5.0); Alkaline Phosphatase 57 U/L (38-126); Anion Gap 8 mmol/L; Blood Urea Nitrogen 17 mg/dL (7-17); Calcium 9.3 mg/dL (8.4-10.2); Carbon Dioxide 23 mmol/L (22-30); Chloride 105 mmol/L (98-107); Glucose 97 mg/dL (74-99); Non-African American GFR(CKD) >90 (>60 ml/min/1.73 sqM); Potassium 4.4 mmol/L (3.5-5.1); Sodium 136 mmol/L (137-145); Total Bilirubin 0.3 mg/dL (0.2-1.3); Total Protein 6.7 g/dL (6.3-8.2)
--- NOTE | 2019-09-03 00:03 | US ---
EXAMINATION TYPE: US transvaginal DATE OF EXAM: 09/02/2019 COMPARISON: US 2018 CLINICAL HISTORY: pain. Pain x 2 weeks. Hx . LMP unknown. . TECHNIQUE: Transvaginal (TV). Date of LMP: Unknown EXAM MEASUREMENTS: Uterus: 7.5 x 5.9 x 4.7 cm Endometrial Stripe: 1.13 cm Right Ovary: 5.1 x 2.7 x 3.1 cm Left ovary not definitely seen. 1. Uterus: Anteverted Hypoechoic area seen in upper endometrium measurin.7 x 0.7 x 0.6 cm. Ane choic area seen lower uterus measurin.5 x 0.5 x 0.6 cm. 2. Endometrium: As mentioned above, hypoechoic area seen in upper endometrium measurin.7 x 0.7 x 0.6 cm. Endometrium measures 1.13 cm. 3. Right Ovary: Measures enlarged. Anechoic area seen measurin.2 x 2.4 x 2.6 cm. 4. Left Ovary: Not definitely seen Spectral, color and waveform doppler imaging shows arterial and venous flow within the right ovary . 5. Bilateral Adnexa: Fluid seen in right adnexa: 1.9 x 2.0 x 1.3 cm. *Area of mixed echogenicity seen in the left adnexa. Possible left ovary (enlarged). Arterial and reinaldo ous waveforms are shown within left adnexal area. Area measures: 7.1 x 6.7 x 4.9 cm. Mixed anechoic a arline seen within: 5.3 x 4.2 x 4.0 cm. 6. Posterior cul-de-sac: Minimal fluid seen. IMPRESSION: Small intrauterine fluid collection. This does not have appearance of a gestational sac. There is a 3 .2 x 2.4 cm cyst on the right ovary. No evidence of ovarian torsion. There is a complex fluid collection in the left adnexal region that measures 5.3 x 4 cm. I would cons ider possibilities of endometriosis, tubo-ovarian abscess. Also consider atypical ovarian cyst.
--- NOTE | 2019-09-03 00:23 | ED ---
Abdominal Pain HPI - General Chief Complaint: Abdominal Pain Stated Complaint: Female Time Seen by Provider: 09/02/19 21:57 Source: patient Mode of arrival: ambulatory Limitations: no limitations - History of Present Illness Initial Comments: 24-year-old female patient presented to the emergency department today for evaluation of abdominal pain and vaginal discharge. Patient states that she has been having increased abdominal pain for the last couple of days. States that she has been dealing with treatment for x-ray transmitted infection since the end of July. States she was initially diagnosed with gonorrhea and treated. States 2 weeks later she had repeat testing because she was still having symptoms and testing was again positive. Patient states she did receive an injection at urgent care but never picked up the pills from the pharmacy due to transportation issues. She is also treated for urinary tract infection. Patient states that she has been having increased pain and nausea so she presented here for further evaluation. Patient states that the discharge is white and odorous. States that her abdominal pain is generalized, but worse over the lower abdomen. She states she has been nauseated without vomiting. Denies fever or chills. She is unsure she is . Patient denies any recent rash, cough, shortness of breath, chest pain, diarrhea, constipation, back pain, numbness, tingling, dizziness, weakness, hematuria, dysuria, urinary urgency, urinary frequency, headache, visual changes, or any other complaints. - Related Data Home Medications Medication Instructions Recorded Confirmed No Known Home Medications 11/23/18 11/23/18 Allergies Allergy/AdvReac Type Severity Reaction Status Date / Time No Known Allergies Allergy Verified 09/02/19 21:54 Review of Systems ROS Statement: Those systems with pertinent positive or pertinent negative responses have been documented in the HPI. ROS Other: All systems not noted in ROS Statement are negative. Past Medical History Past Medical History: No Reported History History of Any Multi-Drug Resistant Organisms: None Reported Past Surgical History: Orthopedic Surgery Additional Past Surgical History / Comment(s): finger Past Anesthesia/Blood Transfusion Reactions: No Reported Reaction Past Psychological History: Anxiety Smoking Status: Current every day smoker Past Alcohol Use History: None Reported Past Drug Use History: Marijuana - Past Family History Mother Family Medical History: No Reported History General Exam Limitations: no limitations General appearance: alert, in no apparent distress, other (This is a well- developed, well-nourished adult female patient in no acute distress. Vital signs upon presentation are temperature 98.1F, pulse 82, respirations 20, blood pressure 129/83, pulse ox 99% on room air.) Eye exam: Present: normal appearance, PERRL, EOMI. Absent: scleral icterus, conjunctival injection, periorbital swelling ENT exam: Present: normal exam, normal oropharynx, mucous membranes moist Respiratory exam: Present: normal lung sounds bilaterally. Absent: respiratory distress, wheezes, rales, rhonchi, stridor Cardiovascular Exam: Present: regular rate, normal rhythm, normal heart sounds. Absent: systolic murmur, diastolic murmur, rubs, gallop, clicks GI/Abdominal exam: Present: soft, tenderness (Right pelvic, suprapubic, left pelvic), normal bowel sounds. Absent: distended, guarding, rebound, rigid External exam: Present: normal external exam Speculum exam: Present: vaginal discharge (white). Absent: vaginal bleeding By manual exam: Present: cervical motion tenderness (mild). Absent: adnexal tenderness, uterine enlargement, uterine tenderness Neurological exam: Present: alert, oriented X3, CN II-XII intact Psychiatric exam: Present: normal affect, normal mood Skin exam: Present: warm, dry, intact, normal color. Absent: rash Course Vital Signs 09/02/19 09/03/19 21:52 00:43 Temperature 98.1 F Pulse Rate 82 67 Respiratory 20 17 Rate Blood Pressure 129/83 117/66 O2 Sat by Pulse 99 99 Oximetry Medical Decision Making - Medical Decision Making 24-year-old female patient presented to the emergency department today for evaluation of abdominal pain, vaginal discharge. Patient has recent infection with gonorrhea and urinary tract infection. Physical examination did reveal lower abdominal tenderness. Pelvic exam was performed and did reveal white vaginal discharge, mild cervical motion tenderness, no adnexal tenderness. Labs reviewed and revealed normal white blood cell count. Normal urinalysis. Tri chomonas testing was positive. Vaginal cultures were sent and are pending. Ultrasound was obtained and did show complex fluid collection the left adnexal region which is concerning for endometriosis, tubo-ovarian abscess, or atypical ovarian cyst. Case was discussed with on-call retail bakery manager for Dr. Cleo Serrano who recommends admission for IV antibiotics, monitoring, and further evaluation of the morning. Did discuss results and plan with the patient, she is agreeable. - Lab Data Result diagrams: 09/02/19 22:30 09/02/19 22:30 Lab Results 09/02/19 09/02/19 09/02/19 Range/Units 22:30 22:30 22:30 WBC 8.0 (3.8-10.6) k/uL RBC 4.65 (3.80-5.40) m/uL Hgb 14.4 (11.4-16.0) gm/dL Hct 42.4 (34.0-46.0) % MCV 91.1 (80.0-100.0) fL MCH 30.9 (25.0-35.0) pg MCHC 33.9 (31.0-37.0) g/dL RDW 12.4 (11.5-15.5) % Plt Count 273 (150-450) k/uL Neutrophils % 58 % Lymphocytes % 32 % Monocytes % 6 % Eosinophils % 2 % Basophils % 0 % Neutrophils # 4.6 (1.3-7.7) k/uL Lymphocytes # 2.5 (1.0-4.8) k/uL Monocytes # 0.5 (0-1.0) k/uL Eosinophils # 0.2 (0-0.7) k/uL Basophils # 0.0 (0-0.2) k/uL Sodium (137-145) mmol/L Potassium (3.5-5.1) mmol/L Chloride (98-107) mmol/L Carbon Dioxide (22-30) mmol/L Anion Gap mmol/L BUN (7-17) mg/dL Creatinine (0.52-1.04) mg/dL Est GFR (CKD-EPI)AfAm (>60 ml/min/1.73 sqM) Est GFR (CKD-EPI)NonAf (>60 ml/min/1.73 sqM) Glucose (74-99) mg/dL Calcium (8.4-10.2) mg/dL Total Bilirubin (0.2-1.3) mg/dL AST (14-36) U/L ALT (4-34) U/L Alkaline Phosphatase (38-126) U/L Total Protein (6.3-8.2) g/dL Albumin (3.5-5.0) g/dL Urine Color Yellow Urine Appearance Clear (Clear) Urine pH 5.5 (5.0-8.0) Ur Specific [place] 1.031 (1.001-1.035) Urine Protein Negative (Negative) Urine Glucose (UA) Negative (Negative) Urine Ketones Negative (Negative) Urine Blood Negative (Negative) Urine Nitrite Negative (Negative) Urine Bilirubin Negative (Negative) Urine Urobilinogen <2.0 (<2.0) mg/dL Ur Leukocyte Esterase Negative (Negative) Urine HCG, Qual Not Detected (Not Detectd) Trichomonas Ag (Rapid) (Negative) 09/02/19 09/02/19 Range/Units 22:30 22:30 WBC (3.8-10.6) k/uL RBC (3.80-5.40) m/uL Hgb (11.4-16.0) gm/dL Hct (34.0-46.0) % MCV (80.0-100.0) fL MCH (25.0-35.0) pg MCHC (31.0-37.0) g/dL RDW (11.5-15.5) % Plt Count (150-450) k/uL Neutrophils % % Lymphocytes % % Monocytes % % Eosinophils % % Basophils % % Neutrophils # (1.3-7.7) k/uL Lymphocytes # (1.0-4.8) k/uL Monocytes # (0-1.0) k/uL Eosinophils # (0-0.7) k/uL Basophils # (0-0.2) k/uL Sodium 136 L (137-145) mmol/L Potassium 4.4 (3.5-5.1) mmol/L Chloride 105 (98-107) mmol/L Carbon Dioxide 23 (22-30) mmol/L Anion Gap 8 mmol/L BUN 17 (7-17) mg/dL Creatinine 0.76 (0.52-1.04) mg/dL Est GFR (CKD-EPI)AfAm >90 (>60 ml/min/1.73 sqM) Est GFR (CKD-EPI)NonAf >90 (>60 ml/min/1.73 sqM) Glucose 97 (74-99) mg/dL Calcium 9.3 (8.4-10.2) mg/dL Total Bilirubin 0.3 (0.2-1.3) mg/dL AST 30 (14-36) U/L ALT 27 (4-34) U/L Alkaline Phosphatase 57 (38-126) U/L Total Protein 6.7 (6.3-8.2) g/dL Albumin 4.2 (3.5-5.0) g/dL Urine Color Urine Appearance (Clear) Urine pH (5.0-8.0) Ur Specific [place] (1.001-1.035) Urine Protein (Negative) Urine Glucose (UA) (Negative) Urine Ketones (Negative) Urine Blood (Negative) Urine Nitrite (Negative) Urine Bilirubin (Negative) Urine Urobilinogen (<2.0) mg/dL Ur Leukocyte Esterase (Negative) Urine HCG, Qual (Not Detectd) Trichomonas Ag (Rapid) Positive H (Negative) - Radiology Data Radiology results: report reviewed, image reviewed Ultrasound was obtained. Report was reviewed in its entirety. Impression by Dr Kiara Chen small intrauterine fluid collection. This does not have an appearance of a gestational sac. There is a 3.2 x 2.4 cm cyst on the right ovary. No evidence of ovarian torsion. There is a complex fluid collection in the left adnexal region that measures 5.3 x 4 cm. I would consider pos sibilities of endometriosis, tubo-ovarian abscess, and atypical ovarian cyst. Disposition Clinical Impression: Pelvic pain, Infection due to trichomonas, Left pelvic adnexal fluid collection Disposition: ADMITTED IP TO THIS [facility] Condition: Serious Referrals: None,Stated [Primary Care Provider] - 1-2 days Decision to Admit Reason: Admit from EC Decision Date: 09/03/19 Decision Time: 00:32
[2019-09-03] MEDS ORDERED: metroNIDAZOLE 500 MG TAB PO STA (00:48)
[2019-09-03] MEDS ORDERED: ONDANSETRON 4 MG/2 ML VIAL IVP PRN (00:50)
[2019-09-03] MEDS ORDERED: NALOXONE 0.4 MG/ML 1 ML VIAL IV PRN (00:50)
[2019-09-03] MEDS ORDERED: MORPHINE SULFATE 2 MG/ML SYRINGE IVP PRN (00:51)
[2019-09-03] MEDS ORDERED: SODIUM CHLORIDE 0.9% 1,000 ML IV SCH (01:00)
[2019-09-03 08:21] LABS: Basophils % (A) 0 %; Eosinophils # (A) 0.1 k/uL (0-0.7); Eosinophils % (A) 2 %; HCT 40.2 % (34.0-46.0); HGB 12.9 gm/dL (11.4-16.0); Lymphocytes # (A) 1.8 k/uL (1.0-4.8); Lymphocytes % (A) 28 %; MCH 29.7 pg (25.0-35.0); MCV 92.9 fL (80.0-100.0); Mean Platelet Volume 7.6; Monocytes # (A) 0.4 k/uL (0-1.0); Monocytes % (A) 6 %; Neutrophils # (A) 4.1 k/uL (1.3-7.7); Neutrophils % (A) 62 %; Platelet Count 211 k/uL (150-450); RBC 4.32 m/uL (3.80-5.40); RDW 12.6 % (11.5-15.5); WBC 6.6 k/uL (3.8-10.6)
[2019-09-03] MEDS ORDERED: metroNIDAZOLE 500 MG TAB PO SCH (09:00)
[2019-09-03 09:06] VITALS: BP 102/63; PULSE 71; RESP 16; TEMP 98.8
--- NOTE | 2019-09-03 09:54 | P.HPOB ---
History of Present Illness H&P Date: 09/03/19 Chief Complaint: Abdominal pain with complex cyst This is a very pleasant 24-year-old who relates that in July she went to an urgent care and had cultures done and showed gonorrhea. She received the injection did not take the oral medication. Her partner was not treated and then last week she returned to the urgent care and was retested and was still positive for gonorrhea. She again received injection but did not take the oral antibiotics and her partner is still not been treated. In the emergency room last night she also was noted to have Trichomonas and this will also need to be treated. She has been having an increase in pelvic and abdominal pain her last several days but no fever/chills her white blood cell count was normal she is afebrile and we'll she had some nausea and vomiting last night that is essentially resolved as well. She was is asking for breakfast. We are not planning to take her surgeries we'll allow her to eat. We discussed treatment plan which includes oral antibiotics as she is likely to sign out AGAINST MEDICAL ADVICE we don't discharge her to home. As I do not want to see her get any sicker have any other changes and with normal white blood cell count and no proof that this is a tubo-ovarian abscess we'll plan discharged home with oral antibiotics and follow up with me in approximately 10 days. She has 2 weeks of oral antibiotics prescribed. her partner is again encouraged to get treated with a discussion that should she continue to have these issues she could end up scarring her fallopian tubes and not be able to get as well as have permanent pain or disability-like symptoms and possible need for removal of flow can tubes or ovaries. I did also explain that he could have severe pain and epididymitis became difficult for him to father a child as well. He has thus far refused treatment according to her. Past medical history none Past surgical history section ALLERGIES none Social history significant for tobacco abuse with vape and occasional alcohol use. She also relates that she uses marijuana Family history is significant for fibromyalgia On physical exam heart is regular lungs are clear abdomen abdomen is soft with positive bowel sounds. Bimanual exam reveals no masses but she is obese and it is somewhat limiting to exam. She has no significant pain and tolerated the exam very well. Assessment complex cyst with abdominal pain and history of sub-optimally treated STDs. Ultrasound shows a complex 4-5 cm cyst with possible enlarged ovary at 7 cm no evidence of torsion. Plan outpatient antibiotic treatment and follow-up with me in approximately 10 days. We'll plan repeat ultrasound in 4-6 weeks to reassess scopic ovarian cyst if there is any concerns for anything other than a complex cyst she made require surgical intervention she is made aware of that and is aware of potential for torsion and or cyst rupturing causing significant pain in which case she would report to the emergency room. Since she has no symptoms or other concerns and I have no reason at this time to take her to surgery she would like to go home and indicates that she would likely sign out if I don't send her home so we will send her home with oral antibiotics and antiemetics should the nausea returned. Past Medical History Past Medical History: No Reported History History of Any Multi-Drug Resistant Organisms: None Reported Past Surgical History: Orthopedic Surgery Additional Past Surgical History / Comment(s): pt dislocated finger, required surgery. -january 21, 2018 Past Anesthesia/Blood Transfusion Reactions: No Reported Reaction Past Psychological History: Anxiety Smoking Status: Vaper Past Alcohol Use History: None Reported Past Drug Use History: Marijuana - Past Family History Mother Family Medical History: No Reported History Medications and Allergies Home Medications Medication Instructions Recorded Confirmed Type Doxycycline [Vibramycin] 100 mg PO BID 3 Days #28 capsule 09/03/19 Rx Ondansetron Odt [Zofran Odt] 4 mg PO Q8HR PRN #30 tab 09/03/19 Rx metroNIDAZOLE [Flagyl] 500 mg PO BID #28 tab 09/03/19 Rx Allergies Allergy/AdvReac Type Severity Reaction Status Date / Time No Known Allergies Allergy Verified 09/03/19 09:01 Exam Osteopathic Statement: *. No significant issues noted on an osteopathic structural exam other than those noted in the History and Physical/Consult. Vital Signs Temp Pulse Pulse Resp BP BP Pulse Ox 09/03/19 09:05 98.8 F 71 16 102/63 98 09/03/19 01:46 98.4 F 72 18 134/79 09/03/19 00:43 67 17 117/66 99 09/02/19 21:52 98.1 F 82 20 129/83 99 Intake and Output 09/02/19 09/03/19 09/03/19 22:59 06:59 14:59 Intake Total 1050 Balance 1050 Intake: Intake, IV Titration 1050 Amount Sodium Chloride 0.9% 1, 1000 000 ml @ 999 mls/hr IV . Q1H1M ONE Rx#:[id number] cefTRIAXone 1 gm In 50 Sodium Chloride 0.9% 50 ml @ 100 mls/hr IVPB ONCE STA Rx#:[id number] Oral 0 Other: Voiding Method Toilet # Voids 2 Weight 86.183 kg 88.904 kg Results Result Diagrams: 09/03/19 07:49 09/02/19 22:30 Abnormal Lab Results - Last 24 Hours (Table) 09/02/19 09/02/19 Range/Units 22:30 22:30 Sodium 136 L (137-145) mmol/L Trichomonas Ag (Rapid) Positive H (Negative) Microbiology - Last 24 Hours (Table) 09/02/19 22:30 Genital Culture - Preliminary Vaginal
--- NOTE | 2019-09-03 09:56 | P.DS ---
Providers Date of admission: 09/03/19 00:33 Expected date of discharge: 09/03/19 Attending physician: Reuben Gallo Primary care physician: Stated None Hospital Course: Please see H&P as this does include much of the discharge summary. Maria C is doing well this morning. She continues to be afebrile and her white count is decreased to 6. We had no other recent have to keep her as the antibiotic the period to be working and I also cannot be [place] certain that this is a tubo- ovarian abscess or other infectious cause as she has previously been treated what seems like it is been somewhat suboptimally. We'll plan to have her follow up with me in 10 days to 2 weeks and reassess the ovarian/adnexal cyst in approximately 6 weeks. She is aware should she have increasing pain, fever, chills, nausea or vomiting any other changes that are concerning she is to report back to the emergency room immediately. She is otherwise stable for discharge at this time. Patient Condition at Discharge: Good Plan - Discharge Summary Discharge Rx Participant: Yes New Discharge Prescriptions: New metroNIDAZOLE [Flagyl] 500 mg PO BID #28 tab Doxycycline [Vibramycin] 100 mg PO BID 3 Days #28 capsule Ondansetron Odt [Zofran Odt] 4 mg PO Q8HR PRN #30 tab PRN Reason: Nausea Discharge Medication List Doxycycline [Vibramycin] 100 mg PO BID 3 Days #28 capsule 09/03/19 [Rx] Ondansetron Odt [Zofran Odt] 4 mg PO Q8HR PRN #30 tab 09/03/19 [Rx] metroNIDAZOLE [Flagyl] 500 mg PO BID #28 tab 09/03/19 [Rx] Follow up Appointment(s)/Referral(s): Reuben Gallo DO [Doctor of Osteopathic Medicine] - 10 Days None,Stated [Primary Care Provider] - 1-2 days Activity/Diet/Wound Care/Special Instructions: Return with any high temperatures, severe pain or other problems. Finish all antibiotics and follow up with me in the office in 10 days Discharge Disposition: HOME SELF-CARE
[2019-09-03 14:37] LABS: C. trachomatis,PCR Negative (Neg,Equiv); Chlamydia trachomatis Source Vagina; N. gonorrhoeae,PCR Negative (Neg,Equiv); Neisseria Source Vagina
== END 2019-09-03 10:21 | disposition home or self-care (01) ==
LOC: EC 21:49 → 6PED 09-03 00:33
PROVIDERS: ADMIT Obstetrics & Gynecology; ATTEND Obstetrics & Gynecology
DX: A59.01 Trichomonal vulvovaginitis (principal); N83.201 Unspecified ovarian cyst, right side; F41.9 Anxiety disorder, unspecified; F17.290 Nicotine dependence, other tobacco product, uncomplicated; F12.90 Cannabis use, unspecified, uncomplicated; E66.9 Obesity, unspecified; Z68.32 Body mass index [BMI] 32.0-32.9, adult; Z87.440 Personal history of urinary (tract) infections; Z86.19 Personal history of other infectious and parasitic diseases; Z82.69 Family history of other diseases of the musculoskeletal system and connective tissue; Z03.818 Encounter for observation for suspected exposure to other biological agents ruled out
CPT/HCPCS: 96361 ×3; 96375 ×2; 96365; 99285; 36415; 80053; 85025 ×2; 81003; 81025; 87040; 87808; 87491; 87591; 87070; 93975; 76830; G0378; U0003; J2405 ×2; J0696

== ENCOUNTER 2020-02-15 00:11 | Emergency (ER) | payer BC, OTHER ==
[2020-02-15 00:18] VITALS: BP 150/90; PULSE 84; RESP 19; TEMP 98.7
[2020-02-15] MEDS ORDERED: SODIUM CHLORIDE 0.9% 1,000 ML IV STA (00:31)
--- NOTE | 2020-02-15 00:40 | ED ---
General Adult HPI - General Chief complaint: Abdominal Pain Stated complaint: Abdominal Pain Time Seen by Provider: 02/15/20 00:21 Source: patient, RN notes reviewed Mode of arrival: ambulatory Limitations: no limitations - History of Present Illness Initial comments: 24-year-old female presents to the emergency room for chief complaint of left lower quadrant pain 2 months. Patient reports she has had left lower quadrant abdominal pain ever since she had surgery to remove a left ovarian cyst in [place]. States that at her follow-up she did discuss this concern however was told that it would go away. Patient reports is still hasn't gone away. Patient therefore wanted to be evaluated today. She denies any nausea vomiting diarrhea. Denies any vaginal discharge. Denies fevers or chills. States she was told further follow-ups would be through her own [facility].Patient has no other complaints at this time including shortness of breath, chest pain, nausea or vomiting, headache, or visual changes. - Related Data Previous Rx's Medication Instructions Recorded Doxycycline [Vibramycin] 100 mg PO BID 3 Days #28 capsule 09/03/19 Ondansetron Odt [Zofran Odt] 4 mg PO Q8HR PRN #30 tab 09/03/19 metroNIDAZOLE [Flagyl] 500 mg PO BID #28 tab 09/03/19 Allergies Allergy/AdvReac Type Severity Reaction Status Date / Time No Known Allergies Allergy Verified 02/15/20 00:19 Review of Systems ROS Statement: Those systems with pertinent positive or pertinent negative responses have been documented in the HPI. ROS Other: All systems not noted in ROS Statement are negative. Past Medical History Past Medical History: No Reported History History of Any Multi-Drug Resistant Organisms: None Reported Past Surgical History: Orthopedic Surgery Additional Past Surgical History / Comment(s): pt dislocated finger, required surgery. -january 21, 2018 Past Anesthesia/Blood Transfusion Reactions: No Reported Reaction Past Psychological History: Anxiety Smoking Status: Vaper Past Alcohol Use History: None Reported Past Drug Use History: Marijuana - Past Family History Mother Family Medical History: No Reported History General Exam Limitations: no limitations General appearance: alert Head exam: Present: atraumatic Eye exam: Present: normal appearance ENT exam: Present: normal exam, mucous membranes moist Neck exam: Present: normal inspection, full ROM Respiratory exam: Present: normal lung sounds bilaterally. Absent: respiratory distress Cardiovascular Exam: Present: regular rate, normal rhythm GI/Abdominal exam: Present: soft, normal bowel sounds. Absent: distended, tenderness (non-tender upon palpation in all 4 quadrants. well healing vertical laparotomy scar.), guarding, rebound, rigid Course Vital Signs 02/15/20 00:14 Temperature 98.7 F Pulse Rate 84 Respiratory 19 Rate Blood Pressure 150/90 O2 Sat by Pulse 98 Oximetry Medical Decision Making - Medical Decision Making Vitals are stable. No significant abdominal tenderness. CBC CMP unremarkable. CT abdomen and pelvis shows complex adnexal cyst bilaterally, left larger than the right at 5 cm, recommended transvaginal imaging to further assess. Patient symptoms have been consistent for the past 2 months. Symptoms are not consistent with torsion. At this time we recommend outpatient ultrasound to patient's [facility]. She is agreeable to this and will call in the morning as she is an established patient. She will return here for any worsening symptoms. I discussed this case with attending Dr. Pina who agrees with this assessment and treatment plan. - Lab Data Result diagrams: 02/15/20 00:45 02/15/20 00:45 Lab Results 02/15/20 02/15/20 02/15/20 Range/Units 00:30 00:30 00:45 WBC 7.4 (3.8-10.6) k/uL RBC 4.59 (3.80-5.40) m/uL Hgb 13.4 (11.4-16.0) gm/dL Hct 40.0 (34.0-46.0) % MCV 87.1 (80.0-100.0) fL MCH 29.2 (25.0-35.0) pg MCHC 33.5 (31.0-37.0) g/dL RDW 12.5 (11.5-15.5) % Plt Count 251 (150-450) k/uL MPV 7.1 Neutrophils % 60 % Lymphocytes % 29 % Monocytes % 5 % Eosinophils % 3 % Basophils % 1 % Neutrophils # 4.4 (1.3-7.7) k/uL Lymphocytes # 2.1 (1.0-4.8) k/uL Monocytes # 0.4 (0-1.0) k/uL Eosinophils # 0.2 (0-0.7) k/uL Basophils # 0.1 (0-0.2) k/uL Sodium (137-145) mmol/L Potassium (3.5-5.1) mmol/L Chloride (98-107) mmol/L Carbon Dioxide (22-30) mmol/L Anion Gap mmol/L BUN (7-17) mg/dL Creatinine (0.52-1.04) mg/dL Est GFR (CKD-EPI)AfAm (>60 ml/min/1.73 sqM) Est GFR (CKD-EPI)NonAf (>60 ml/min/1.73 sqM) Glucose (74-99) mg/dL Calcium (8.4-10.2) mg/dL Total Bilirubin (0.2-1.3) mg/dL AST (14-36) U/L ALT (4-34) U/L Alkaline Phosphatase (38-126) U/L Total Protein (6.3-8.2) g/dL Albumin (3.5-5.0) g/dL Amylase (30-110) U/L Lipase (23-300) U/L Urine Color Yellow Urine Appearance Cloudy H (Clear) Urine pH 6.5 (5.0-8.0) Ur Specific [place] 1.023 (1.001-1.035) Urine Protein Negative (Negative) Urine Glucose (UA) Negative (Negative) Urine Ketones Negative (Negative) Urine Blood Negative (Negative) Urine Nitrite Negative (Negative) Urine Bilirubin Negative (Negative) Urine Urobilinogen <2.0 (<2.0) mg/dL Ur Leukocyte Esterase Negative (Negative) Urine RBC <1 (0-5) /hpf Urine WBC <1 (0-5) /hpf Ur Squamous Epith Cells 3 (0-4) /hpf Amorphous Sediment Occasional H (None) /hpf Urine Mucus Rare H (None) /hpf Urine HCG, Qual Not Detected (Not Detectd) 02/15/20 Range/Units 00:45 WBC (3.8-10.6) k/uL RBC (3.80-5.40) m/uL Hgb (11.4-16.0) gm/dL Hct (34.0-46.0) % MCV (80.0-100.0) fL MCH (25.0-35.0) pg MCHC (31.0-37.0) g/dL RDW (11.5-15.5) % Plt Count (150-450) k/uL MPV Neutrophils % % Lymphocytes % % Monocytes % % Eosinophils % % Basophils % % Neutrophils # (1.3-7.7) k/uL Lymphocytes # (1.0-4.8) k/uL Monocytes # (0-1.0) k/uL Eosinophils # (0-0.7) k/uL Basophils # (0-0.2) k/uL Sodium 136 L (137-145) mmol/L Potassium 4.2 (3.5-5.1) mmol/L Chloride 107 (98-107) mmol/L Carbon Dioxide 23 (22-30) mmol/L Anion Gap 6 mmol/L BUN 13 (7-17) mg/dL Creatinine 0.71 (0.52-1.04) mg/dL Est GFR (CKD-EPI)AfAm >90 (>60 ml/min/1.73 sqM) Est GFR (CKD-EPI)NonAf >90 (>60 ml/min/1.73 sqM) Glucose 100 H (74-99) mg/dL Calcium 9.2 (8.4-10.2) mg/dL Total Bilirubin 0.3 (0.2-1.3) mg/dL AST 21 (14-36) U/L ALT 20 (4-34) U/L Alkaline Phosphatase 60 (38-126) U/L Total Protein 6.5 (6.3-8.2) g/dL Albumin 3.7 (3.5-5.0) g/dL Amylase 64 (30-110) U/L Lipase 105 (23-300) U/L Urine Color Urine Appearance (Clear) Urine pH (5.0-8.0) Ur Specific [place] (1.001-1.035) Urine Protein (Negative) Urine Glucose (UA) (Negative) Urine Ketones (Negative) Urine Blood (Negative) Urine Nitrite (Negative) Urine Bilirubin (Negative) Urine Urobilinogen (<2.0) mg/dL Ur Leukocyte Esterase (Negative) Urine RBC (0-5) /hpf Urine WBC (0-5) /hpf Ur Squamous Epith Cells (0-4) /hpf Amorphous Sediment (None) /hpf Urine Mucus (None) /hpf Urine HCG, Qual (Not Detectd) Disposition Clinical Impression: Abdominal pain, Ovarian cyst, bilateral Disposition: HOME SELF-CARE Condition: Good Instructions (If sedation given, give patient instructions): Ovarian Cyst (ED) Additional Instructions: Please take Motrin and Tylenol for pain. Please follow-up with your [facility] or gynecology surgeon. Call first thing Sunday morning. Return to the emergency room for any worsening symptoms. Is patient prescribed a controlled substance at d/c from ED?: No Referrals: Reuben Gallo DO [Doctor of Osteopathic Medicine] - 1-2 days Time of Disposition: 01:35
[2020-02-15 00:50] LABS: Amorphous Sediment,Urine Occasional /hpf; Appearance,Urine Cloudy (Clear); Bilirubin,Urine Negative (Negative); Blood,Urine Negative (Negative); Color,Urine Yellow; Glucose,Urine (UA) Negative (Negative); Ketones,Urine Negative (Negative); Leukocyte Esterase,Urine Negative (Negative); Mucus,Urine Rare /hpf; Nitrite,Urine Negative (Negative); PH, Urine 6.5 (5.0-8.0); Protein,Urine Negative (Negative); RBC,Urine <1 /hpf (0-5); Specific Gravity,Urine 1.023 (1.001-1.035); Squamous Epithelial Cell,Urine 3 /hpf (0-4); Urobilinogen,Urine <2.0 mg/dL (<2.0); WBC,Urine <1 /hpf (0-5)
[2020-02-15 00:53] LABS: Basophils # (A) 0.1 k/uL (0-0.2); Basophils % (A) 1 %; Eosinophils # (A) 0.2 k/uL (0-0.7); Eosinophils % (A) 3 %; HGB 13.4 gm/dL (11.4-16.0); Lymphocytes # (A) 2.1 k/uL (1.0-4.8); Lymphocytes % (A) 29 %; MCH 29.2 pg (25.0-35.0); MCHC 33.5 g/dL (31.0-37.0); MCV 87.1 fL (80.0-100.0); Mean Platelet Volume 7.1; Monocytes # (A) 0.4 k/uL (0-1.0); Monocytes % (A) 5 %; Neutrophils # (A) 4.4 k/uL (1.3-7.7); Neutrophils % (A) 60 %; Platelet Count 251 k/uL (150-450); RBC 4.59 m/uL (3.80-5.40); RDW 12.5 % (11.5-15.5); WBC 7.4 k/uL (3.8-10.6)
[2020-02-15 01:07] LABS: ALT 20 U/L (4-34); AST 21 U/L (14-36); African American GFR (CKD) >90 (>60 ml/min/1.73 sqM); Albumin 3.7 g/dL (3.5-5.0); Alkaline Phosphatase 60 U/L (38-126); Amylase 64 U/L (30-110); Anion Gap 6 mmol/L; Blood Urea Nitrogen 13 mg/dL (7-17); Calcium 9.2 mg/dL (8.4-10.2); Carbon Dioxide 23 mmol/L (22-30); Chloride 107 mmol/L (98-107); Glucose 100 mg/dL (74-99); Lipase 105 U/L (23-300); Non-African American GFR(CKD) >90 (>60 ml/min/1.73 sqM); Potassium 4.2 mmol/L (3.5-5.1); Sodium 136 mmol/L (137-145); Total Bilirubin 0.3 mg/dL (0.2-1.3); Total Protein 6.5 g/dL (6.3-8.2)
--- NOTE | 2020-02-15 01:16 | CT ---
EXAM: CT Abdomen and Pelvis With Intravenous Contrast CLINICAL HISTORY: ITS.REASON CT Reason: pain llq, ovarian cyst removal nov TECHNIQUE: Axial computed tomography images of the abdomen and pelvis with intravenous contrast. CTDI is 29.4 mGy and DLP is 1151.9 mGy-cm. This CT exam was performed using one or more of the following dose reduction techniques: automated exposure control, adjustment of the mA and/or kV according to patient size, and/or use of iterative reconstruction technique. COMPARISON: No previous studies. FINDINGS: Lung bases: Minimal subsegmental atelectasis posteriorly at the lung bases. Minimal subsegmental atelectasis lingular region. Heart: Heart is normal in size. ABDOMEN: Liver: The liver and the spleen enhance uniformly. Gallbladder and bile ducts: See below. Pancreas: See below. Spleen: See above. Adrenals: The adrenal glands, the head, body, tail of the pancreas and the gallbladder is unremarkable. Kidneys and ureters: Both kidneys are shown to excrete contrast bilaterally without hydronephrosis appeared 0.8 cm simple right renal cyst. No follow-up is necessary. Stomach and bowel: Moderate quantity of stool throughout the colon. No bowel obstruction. No mucosal thickening. PELVIS: Appendix: The appendix is seen on coronal image 51 and is unremarkable. Bladder: The bladder is underdistended. Reproductive: There is a 2.4 x 1.5 cm complex right ovarian cyst. There is a 5.2 x 2.4 cm complex left adnexal cyst, presumed of ovarian etiology. ABDOMEN and PELVIS: Intraperitoneal space: Unremarkable. No free air. No significant fluid collection. Bones/joints: Mild osteoarthritic changes about the sacroiliac joints. No acute fracture. No dislocation. Soft tissues: 3.8 x 2.5 cm umbilical hernia containing mesenteric fat only. Ischiorectal fat is clean. Postsurgical changes are midline lower anterior abdominal wall. Vasculature: Flow is demonstrated within the celiac, SMA, the renal arteries, and [place]. Portal vein is unremarkable. No abdominal aortic aneurysm. Lymph nodes: No retroperitoneal lymphadenopathy. No pelvic or inguinal lymphadenopathy. IMPRESSION: 1. The gallbladder is unremarkable. 2. No renal calculus or hydronephrosis. 3. Umbilical hernia containing mesenteric fat only. 4. Appendix is unremarkable per 5. No bowel obstruction appeared 6. Complex adnexal cyst bilaterally, left side larger in the right side, presumably of ovarian etiology. 7. Transvaginal imaging of the pelvis is advised to further assessment, particularly given the patient's history.
[2020-02-15] MEDS ORDERED: KETOROLAC 15 MG/ML 1 ML VIAL IVP STA (01:18)
[2020-02-16 12:24] LABS: C. trachomatis,PCR Negative (Neg,Equiv); Chlamydia trachomatis Source Urine; N. gonorrhoeae,PCR Negative (Neg,Equiv); Neisseria Source Urine
== END 2020-02-15 01:54 | disposition home or self-care (01) ==
LOC: EC 00:11
DX: N83.202 Unspecified ovarian cyst, left side (principal); N83.201 Unspecified ovarian cyst, right side
CPT/HCPCS: 36415; 80053; 82150; 83690; 85025; 81001; 81025; 87491; 87591; 74177; 99284; 96374; 96361; J1885; Q9967

== ENCOUNTER 2020-04-06 08:54 | Emergency (ER) | payer BC, OTHER ==
[2020-04-06 08:59] VITALS: BP 123/75; PULSE 85; RESP 18; TEMP 98.8
[2020-04-06 09:40] LABS: Appearance,Urine Cloudy (Clear); Bilirubin,Urine Negative (Negative); Blood,Urine Large (Negative); Color,Urine Yellow; Glucose,Urine (UA) Negative (Negative); Ketones,Urine Negative (Negative); Leukocyte Esterase,Urine Large (Negative); Mucus,Urine Occasional /hpf; Nitrite,Urine Negative (Negative); PH, Urine 6.5 (5.0-8.0); Protein,Urine 1+ (Negative); RBC,Urine >182 /hpf (0-5); Specific Gravity,Urine 1.026 (1.001-1.035); Squamous Epithelial Cell,Urine 1 /hpf (0-4); Urobilinogen,Urine <2.0 mg/dL (<2.0); WBC,Urine >182 /hpf (0-5)
[2020-04-06] MEDS ORDERED: cefTRIAXone IN SWFI 1,000 MG/10 ML SYRINGE IVP STA (09:45)
--- NOTE | 2020-04-06 10:29 | CT ---
EXAMINATION TYPE: CT abdomen pelvis wo con DATE OF EXAM: 04/06/2020 COMPARISON: CT 02/15/2020 HISTORY: Rt Flank pain, Hematuria CT DLP: 787.3 mGycm Automated exposure control for dose reduction was used. TECHNIQUE: Helical acquisition of images from the lung bases through the pelvis. FINDINGS: Lack of intravenous contrast could compromise sensitivity. LUNG BASES: No significant abnormality is appreciated. AORTA: No significant abnormality is appreciataed. LIVER/GB: No significant abnormality is appreciated. PANCREAS: No significant abnormality is seen. SPLEEN: No significant abnormality is seen. ADRENALS: No significant abnormality is seen. KIDNEYS: No significant abnormality is seen. REPRODUCTIVE ORGANS: Fluid attenuation again noted along the left pelvic sidewall. URINARY BLADDER: No significant abnormality is seen. BOWEL: There are some small bowel folds which show thickened appearance. Postop changes are noted to the anterior abdominal wall, there is a small periumbilical as well as umbilical hernia containing f at. FREE AIR: No Free Air is visible. ASCITES: Minimal fluid present within the pelvis. Question some inflammatory change about the lower aspect of the uterus PELVIC ADENOPATHY: None visualized. RETROPERITONEAL ADENOPATHY: No Retroperitoneal Adenopathy visible. OSSEOUS STRUCTURES: No significant abnormality is seen. IMPRESSION: NONCONTRAST EXAM. CORRELATE FOR POSSIBLE ENTERITIS. CANNOT EXCLUDE PELVIC INFLAMMATORY DISEASE, FLUID IN THE PELVIS MAY BE PHYSIOLOGIC OR POSTPROCEDURAL.
[2020-04-06 10:47] LABS: Basophils % (A) 0 %; Eosinophils # (A) 0.1 k/uL (0-0.7); Eosinophils % (A) 2 %; HCT 40.5 % (34.0-46.0); HGB 13.6 gm/dL (11.4-16.0); Lymphocytes # (A) 1.3 k/uL (1.0-4.8); Lymphocytes % (A) 16 %; MCHC 33.6 g/dL (31.0-37.0); MCV 86.4 fL (80.0-100.0); Mean Platelet Volume 7.2; Monocytes # (A) 0.4 k/uL (0-1.0); Monocytes % (A) 5 %; Neutrophils # (A) 6.3 k/uL (1.3-7.7); Neutrophils % (A) 76 %; Platelet Count 272 k/uL (150-450); RBC 4.68 m/uL (3.80-5.40); RDW 13.5 % (11.5-15.5); WBC 8.3 k/uL (3.8-10.6)
[2020-04-06 10:57] LABS: ALT 22 U/L (4-34); AST 25 U/L (14-36); African American GFR (CKD) >90 (>60 ml/min/1.73 sqM); Albumin 3.9 g/dL (3.5-5.0); Alkaline Phosphatase 71 U/L (38-126); Anion Gap 7 mmol/L; Blood Urea Nitrogen 16 mg/dL (7-17); Calcium 9.3 mg/dL (8.4-10.2); Carbon Dioxide 25 mmol/L (22-30); Chloride 106 mmol/L (98-107); Glucose 81 mg/dL (74-99); Non-African American GFR(CKD) >90 (>60 ml/min/1.73 sqM); Potassium 4.6 mmol/L (3.5-5.1); Sodium 138 mmol/L (137-145); Total Bilirubin 0.4 mg/dL (0.2-1.3); Total Protein 6.8 g/dL (6.3-8.2)
--- NOTE | 2020-04-06 11:31 | ED ---
Female Urogenital HPI - General Chief complaint: Urogenital Stated complaint: painful urination/blood in urine Time Seen by Provider: 04/06/20 09:04 Source: patient Mode of arrival: ambulatory Limitations: no limitations - History of Present Illness Initial comments: 24-year-old female presents today for chief complaint dysuria urgency frequency as well as blood and urine. Patient states she has had dysuria urgency for continued for the past 2 days she states she did have a fall again on the right cerebellar back yesterday she states that since subsided. Patient states she is currently history menstruation she states she is a scant amount discharge with nothing that she is concerned about she denies any pelvic pain abdominal pain she denies a nausea vomiting she denies any fevers. Remaining review of systems negative upon arrival patient appears well nontoxic in no acute distress - Related Data Home Medications Medication Instructions Recorded Confirmed Ibuprofen [Motrin] 800 mg PO Q8H PRN 04/06/20 04/06/20 Previous Rx's Medication Instructions Recorded Cephalexin [Keflex] 500 mg PO Q8HR 7 Days #21 cap 04/06/20 Allergies Allergy/AdvReac Type Severity Reaction Status Date / Time No Known Allergies Allergy Verified 04/06/20 09:33 Review of Systems ROS Statement: Those systems with pertinent positive or pertinent negative responses have been documented in the HPI. ROS Other: All systems not noted in ROS Statement are negative. Past Medical History Past Medical History: No Reported History Additional Past Medical History / Comment(s): ovarian cyst, uti History of Any Multi-Drug Resistant Organisms: None Reported Past Surgical History: Orthopedic Surgery Additional Past Surgical History / Comment(s): pt dislocated finger, required surgery. -january 21, 2018, ovarian cyst removal Past Anesthesia/Blood Transfusion Reactions: No Reported Reaction Past Psychological History: Anxiety Smoking Status: Vaper Past Alcohol Use History: Occasional Past Drug Use History: Marijuana - Past Family History Mother Family Medical History: No Reported History General Exam - General Exam Comments Initial Comments: General: The patient is awake and alert, in no distress Eye: +3 mm pupils are equal, round and reactive to light, extra-ocular movements are intact. No nystagmus. There is normal conjunctiva bilaterally. No signs of icterus. Ears, nose, mouth and throat: There are moist mucous membranes and no oral lesions. Neck: The neck is supple, there is no tenderness or JVD. Cardiovascular: There is a regular rate and rhythm. No murmur, rub or gallop is appreciated. Respiratory: Lungs are clear to auscultation, respirations are non-labored, breath sounds are equal. No wheezes, stridor, rales, or rhonchi. Gastrointestinal: Soft, non-distended, non-tender abdomen without masses or organomegaly noted. There is no rebound or guarding present. No CVA tenderness. : scant discharge no adnexal or cervical motion tenderness no cervical lesions appreciated. No blood in vault Musculoskeletal: Normal ROM, no tenderness. Strength 5/5. Sensation intact. Radial and DP pulses equal bilaterally 2+. Neurological: A&O x 3. CN II-XII intact grossly, There are no obvious motor or sensory deficits. Coordination appears grossly intact. Speech is normal. Skin: Skin is warm and dry and no rashes or lesions are noted. Psychiatric: Cooperative, appropriate mood & affect, normal judgment. Limitations: no limitations Course Vital Signs 04/06/20 08:57 Temperature 98.8 F Pulse Rate 85 Respiratory 18 Rate Blood Pressure 123/75 O2 Sat by Pulse 98 Oximetry Medical Decision Making - Medical Decision Making Masses concerning for infection. Pelvic exam there is no cervical motion or adnexal tenderness. Patient recently finished menstruation which is consistent with the CT findings. No obstructing stone. - Lab Data Result diagrams: 04/06/20 09:51 04/06/20 09:51 Lab Results 04/06/20 04/06/20 04/06/20 Range/Units 09:12 09:12 09:51 WBC 8.3 (3.8-10.6) k/uL RBC 4.68 (3.80-5.40) m/uL Hgb 13.6 (11.4-16.0) gm/dL Hct 40.5 (34.0-46.0) % MCV 86.4 (80.0-100.0) fL MCH 29.0 (25.0-35.0) pg MCHC 33.6 (31.0-37.0) g/dL RDW 13.5 (11.5-15.5) % Plt Count 272 (150-450) k/uL MPV 7.2 Neutrophils % 76 % Lymphocytes % 16 % Monocytes % 5 % Eosinophils % 2 % Basophils % 0 % Neutrophils # 6.3 (1.3-7.7) k/uL Lymphocytes # 1.3 (1.0-4.8) k/uL Monocytes # 0.4 (0-1.0) k/uL Eosinophils # 0.1 (0-0.7) k/uL Basophils # 0.0 (0-0.2) k/uL Sodium (137-145) mmol/L Potassium (3.5-5.1) mmol/L Chloride (98-107) mmol/L Carbon Dioxide (22-30) mmol/L Anion Gap mmol/L BUN (7-17) mg/dL Creatinine (0.52-1.04) mg/dL Est GFR (CKD-EPI)AfAm (>60 ml/min/1.73 sqM) Est GFR (CKD-EPI)NonAf (>60 ml/min/1.73 sqM) Glucose (74-99) mg/dL Calcium (8.4-10.2) mg/dL Total Bilirubin (0.2-1.3) mg/dL AST (14-36) U/L ALT (4-34) U/L Alkaline Phosphatase (38-126) U/L Total Protein (6.3-8.2) g/dL Albumin (3.5-5.0) g/dL Urine Color Yellow Urine Appearance Cloudy H (Clear) Urine pH 6.5 (5.0-8.0) Ur Specific [place] 1.026 (1.001-1.035) Urine Protein 1+ H (Negative) Urine Glucose (UA) Negative (Negative) Urine Ketones Negative (Negative) Urine Blood Large H (Negative) Urine Nitrite Negative (Negative) Urine Bilirubin Negative (Negative) Urine Urobilinogen <2.0 (<2.0) mg/dL Ur Leukocyte Esterase Large H (Negative) Urine RBC >182 H (0-5) /hpf Urine WBC >182 H (0-5) /hpf Urine WBC Clumps Moderate H (None) /hpf Ur Squamous Epith Cells 1 (0-4) /hpf Urine Mucus Occasional H (None) /hpf Urine HCG, Qual Not Detected (Not Detectd) Trichomonas Ag (Rapid) (Negative) 04/06/20 04/06/20 Range/Units 09:51 11:39 WBC (3.8-10.6) k/uL RBC (3.80-5.40) m/uL Hgb (11.4-16.0) gm/dL Hct (34.0-46.0) % MCV (80.0-100.0) fL MCH (25.0-35.0) pg MCHC (31.0-37.0) g/dL RDW (11.5-15.5) % Plt Count (150-450) k/uL MPV Neutrophils % % Lymphocytes % % Monocytes % % Eosinophils % % Basophils % % Neutrophils # (1.3-7.7) k/uL Lymphocytes # (1.0-4.8) k/uL Monocytes # (0-1.0) k/uL Eosinophils # (0-0.7) k/uL Basophils # (0-0.2) k/uL Sodium 138 (137-145) mmol/L Potassium 4.6 (3.5-5.1) mmol/L Chloride 106 (98-107) mmol/L Carbon Dioxide 25 (22-30) mmol/L Anion Gap 7 mmol/L BUN 16 (7-17) mg/dL Creatinine 0.72 (0.52-1.04) mg/dL Est GFR (CKD-EPI)AfAm >90 (>60 ml/min/1.73 sqM) Est GFR (CKD-EPI)NonAf >90 (>60 ml/min/1.73 sqM) Glucose 81 (74-99) mg/dL Calcium 9.3 (8.4-10.2) mg/dL Total Bilirubin 0.4 (0.2-1.3) mg/dL AST 25 (14-36) U/L ALT 22 (4-34) U/L Alkaline Phosphatase 71 (38-126) U/L Total Protein 6.8 (6.3-8.2) g/dL Albumin 3.9 (3.5-5.0) g/dL Urine Color Urine Appearance (Clear) Urine pH (5.0-8.0) Ur Specific [place] (1.001-1.035) Urine Protein (Negative) Urine Glucose (UA) (Negative) Urine Ketones (Negative) Urine Blood (Negative) Urine Nitrite (Negative) Urine Bilirubin (Negative) Urine Urobilinogen (<2.0) mg/dL Ur Leukocyte Esterase (Negative) Urine RBC (0-5) /hpf Urine WBC (0-5) /hpf Urine WBC Clumps (None) /hpf Ur Squamous Epith Cells (0-4) /hpf Urine Mucus (None) /hpf Urine HCG, Qual (Not Detectd) Trichomonas Ag (Rapid) Negative (Negative) Disposition Clinical Impression: UTI (urinary tract infection), Hematuria Disposition: HOME SELF-CARE Instructions (If sedation given, give patient instructions): Urinary Tract Infection in Women (ED) Additional Instructions: Please use medication as discussed. Please follow-up with family doctor in the next 2 days. Please return to emergency room if the symptoms increase or worsen or for any other concerns. Prescriptions: Cephalexin [Keflex] 500 mg PO Q8HR 7 Days #21 cap Is patient prescribed a controlled substance at d/c from ED?: No Referrals: None,Stated [Primary Care Provider] - 1-[address] [facility] [NON-STAFF] - 1-2 days Time of Disposition: 11:31
[2020-04-07 15:13] LABS: C. trachomatis,PCR Negative (Neg,Equiv); Chlamydia trachomatis Source Vagina; N. gonorrhoeae,PCR Negative (Neg,Equiv); Neisseria Source Vagina
== END 2020-04-06 11:51 | disposition home or self-care (01) ==
LOC: EC 08:54
DX: N39.0 Urinary tract infection, site not specified (principal); F12.90 Cannabis use, unspecified, uncomplicated
CPT/HCPCS: 36415; 80053; 85025; 81001; 81025; 87808; 87491; 87591; 87070; 87086; 87077; 87186; 74176; 99284; 96374; J0696

== ENCOUNTER 2021-11-06 03:04 | Emergency (ER) | payer OTHER ==
[2021-11-06 03:33] VITALS: TEMP 98.1
[2021-11-06] MEDS ORDERED: HYDROmorphone 0.5 MG/0.5 ML SYRINGE IVP STA (03:43)
[2021-11-06] MEDS ORDERED: SODIUM CHLORIDE 0.9% 500 ML 500 ML IV STA (03:43)
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
[2021-11-06 04:03] LABS: Basophils % (A) 1 %; Eosinophils % (A) 1 %; HCT 39.2 % (34.0-46.0); HGB 13.2 gm/dL (11.4-16.0); Lymphocytes # (A) 1.1 k/uL (1.0-4.8); Lymphocytes % (A) 30 %; MCH 30.4 pg (25.0-35.0); MCHC 33.6 g/dL (31.0-37.0); MCV 90.7 fL (80.0-100.0); Mean Platelet Volume 8.1; Monocytes # (A) 0.2 k/uL (0-1.0); Monocytes % (A) 6 %; Neutrophils # (A) 2.2 k/uL (1.3-7.7); Neutrophils % (A) 60 %; Platelet Count 225 k/uL (150-450); RBC 4.33 m/uL (3.80-5.40); RDW 11.6 % (11.5-15.5); WBC 3.7 k/uL (3.8-10.6)
[2021-11-06 04:15] LABS: ALT 38 U/L (4-34); AST 37 U/L (14-36); African American GFR (CKD) >90 (>60 ml/min/1.73 sqM); Albumin 4.2 g/dL (3.5-5.0); Alcohol 31 mg/dL; Alkaline Phosphatase 56 U/L (38-126); Anion Gap 16 mmol/L; Blood Urea Nitrogen 8 mg/dL (7-17); Calcium 8.8 mg/dL (8.4-10.2); Carbon Dioxide 19 mmol/L (22-30); Chloride 104 mmol/L (98-107); Glucose 98 mg/dL (74-99); Non-African American GFR(CKD) >90 (>60 ml/min/1.73 sqM); Sodium 139 mmol/L (137-145); Total Bilirubin 0.1 mg/dL (0.2-1.3); Total Protein 6.6 g/dL (6.3-8.2)
[2021-11-06 04:16] LABS: Partial Thromboplastin Time 23.7 sec (22.0-30.0); Prothrombin Time 11.2 sec (9.0-12.0)
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
[2021-11-06 05:54] VITALS: BP 124/92; PULSE 80; RESP 18
== END 2021-11-06 05:52 | disposition home or self-care (01) ==
LOC: EC 03:04
DX: R10.9 Unspecified abdominal pain (principal); R07.89 Other chest pain; V03.10XA Pedestrian on foot injured in collision with car, pick-up truck or van in traffic accident, initial encounter; Y92.410 Unspecified street and highway as the place of occurrence of the external cause
CPT/HCPCS: 36415; 86900; 86901; 80053; 84484; 85025; 85610; 85730; 86850; 80320; 72125; 70450; 71260; 74177; 99284; 96374; 96361; J1170; Q9967

== ENCOUNTER 2022-07-30 01:36 | Emergency (ER) | payer BC, OTHER ==
[2022-07-30 01:47] VITALS: RESP 18; TEMP 97.8
[2022-07-30] MEDS ORDERED: LIDOCAINE 1% INJ 10MG/ML (30 ML VIAL-PF) SQ ONE (02:01)
[2022-07-30] MEDS ORDERED: DIPH,PERTUS(ACELL)TETVAC-LF 0.5 ML VIAL IM ONE (02:02)
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
[2022-07-30 03:38] VITALS: BP 135/93; PULSE 65
== END 2022-07-30 03:27 | disposition home or self-care (01) ==
LOC: EC 01:36
DX: S91.012A Laceration without foreign body, left ankle, initial encounter (principal); Z23 Encounter for immunization; F17.290 Nicotine dependence, other tobacco product, uncomplicated; F12.90 Cannabis use, unspecified, uncomplicated; W26.8XXA Contact with other sharp object(s), not elsewhere classified, initial encounter
CPT/HCPCS: 90715; 99282; 90471; 12002; J2001

== ENCOUNTER 2022-08-06 13:57 | Emergency (ER) | payer BC, OTHER ==
[2022-08-06 14:15] VITALS: BP 121/76
[2022-08-06] MEDS ORDERED: CEPHALEXIN 500MG STARTER PACK 4 CAP BTL PO STA (15:25)
[2022-08-06] MEDS ORDERED: IBUPROFEN 600 MG STARTER PACK 4 TAB BTL PO STA (15:25)
[2022-08-06] MEDS ORDERED: ACET/COD 300 MG/30 MG STARTER PACK 6 TAB BTL PO STA (15:25)
--- NOTE | 2022-08-06 15:28 | ED ---
Wound/Laceration HPI - General Chief Complaint: Recheck/Abnormal Lab/Rx Stated Complaint: infection-stitches Time Seen by Provider: 08/06/22 15:02 Source: patient, RN notes reviewed Mode of arrival: ambulatory Limitations: no limitations - History of Present Illness Initial Comments: This is a 27-year-old female who presents to the emergency department for concerns of a suture infection. Patient had sutures here on 07/30 for a laceration to the back of the left ankle. States that yesterday it started to become painful and she has noticed redness surrounding the incision. Denies any fevers or chills. Believes that she may have started to notice some drainage coming from the incision. Denies any fevers, chills, sore throat, cough, dyspnea, chest pain, palpitations, abdominal pain, nausea, vomiting, diarrhea, back pain, or headaches. - Related Data Home Medications Medication Instructions Recorded Confirmed Ibuprofen [Motrin] 800 mg PO Q8H PRN 04/06/20 04/06/20 Previous Rx's Medication Instructions Recorded Cephalexin [Keflex] 500 mg PO Q8HR 7 Days #21 cap 04/06/20 Lidocaine 5% Patch [Lidoderm] 1 patch TOPICAL DAILY #14 patch 03/25/22 Cephalexin [Keflex] 500 mg PO Q6HR 5 Days #20 cap 08/06/22 Allergies Allergy/AdvReac Type Severity Reaction Status Date / Time No Known Allergies Allergy Verified 07/30/22 01:47 Review of Systems ROS Statement: Those systems with pertinent positive or pertinent negative responses have been documented in the HPI. ROS Other: All systems not noted in ROS Statement are negative. Past Medical History Past Medical History: No Reported History Additional Past Medical History / Comment(s): ovarian cyst, uti History of Any Multi-Drug Resistant Organisms: None Reported Past Surgical History: Orthopedic Surgery Additional Past Surgical History / Comment(s): pt dislocated finger, required surgery. -january 21, 2018, ovarian cyst removal Past Anesthesia/Blood Transfusion Reactions: No Reported Reaction Past Psychological History: Anxiety Smoking Status: Vaper Past Alcohol Use History: Occasional Past Drug Use History: Marijuana - Past Family History Mother Family Medical History: No Reported History General Exam Limitations: no limitations General appearance: alert, in no apparent distress Respiratory exam: Present: normal lung sounds bilaterally. Absent: respiratory distress, wheezes, rales, rhonchi, stridor Cardiovascular Exam: Present: regular rate, normal rhythm, normal heart sounds. Absent: systolic murmur, diastolic murmur, rubs, gallop, clicks Neurological exam: Present: alert, oriented X3, CN II-XII intact Psychiatric exam: Present: normal affect, normal mood Skin exam: Present: other (Intact laceration to the posterior aspect of the left ankle with surrounding erythema and tenderness. No active drainage.) Course Vital Signs 08/06/22 08/06/22 14:11 15:37 Temperature 98.7 F 99.0 F Pulse Rate 80 70 Respiratory 18 16 Rate Blood Pressure 121/76 121/76 O2 Sat by Pulse 98 Oximetry Medical Decision Making - Medical Decision Making This is a 27-year-old female who presents to the emergency department for concerns of a laceration infection. Was pt. sent in by a medical professional or institution? @ -No Did you speak to anyone other than the patient for history? @ -No Did you review nursing and triage notes? @ -Yes, and I agree, it is accurate with regards to the patient's symptoms. Were old charts reviewed? @ -No Differential Diagnosis? @ -Differential Laceration Pain: Cellulitis, abscess, irritation, this is not meant to be an all-inclusive list. EKG interpreted by me (3pts min.)? @ -Not obtained X-rays interpreted by me (1pt min.)? @ -Not obtained CT interpreted by me (1pt min.)? @ -Not obtained U/S interpreted by me (1pt. min.)? @ -Not obtained What testing was considered but not performed? (CT, X-rays, U/S, labs)? Why? @ -None What meds were considered but not given? Why? @ -None Did you discuss the management of the patient with other professionals? @ -No Did you reconcile home meds? @ -No Was smoking cessation discussed for >3mins.? @ -No Was critical care preformed (if so, how long)? @ -No Were there social determinants of health that impacted care today? How? (Homelessness, low income, unemployed, alcoholism, drug addiction, transportation, low edu. Level, literacy, decrease access to med. care, shelter, rehab)? @ -No Was there de-escalation of care discussed even if they declined? (Discuss DNR or withdrawal of care, Hospice)? @ -No What co-morbidities impacted this encounter? (DM, HTN, Smoking, COPD, CAD, Cancer, CVA, Hep., AIDS, mental health diagnosis, sleep apnea, morbid obesity)? @ -None Was patient admitted / discharged? @ -Discharged. The sutures were removed. There is some mild surrounding erythema and tenderness. Given the erythema with the patient's increasing pain and reported drainage at home, will put her on a course of Keflex for soft tissue infection. Prescription for Keflex provided with dosing instructions reviewed. Otherwise advised ibuprofen and Tylenol as needed for pain relief. Undiagnosed new problem with uncertain prognosis? @ -None Drug Therapy requiring intensive monitoring for toxicity (Heparin, Nitro, Insulin, Cardizem)? @ -None Were any procedures done? @ -None Diagnosis/symptom? @ -Cellulitis, infected laceration Acute, or Chronic, or Acute on Chronic? @ -Acute Uncomplicated (without systemic symptoms) or Complicated (systemic symptoms)? @ -Uncomplicated Side effects of treatment? @ -None Exacerbation, Progression, or Severe Exacerbation] @ -Not applicable Poses a threat to life or bodily function? @ -No Return precautions reviewed in depth, the patient is instructed to return to the emergency department with any new, worsening, or concerning symptoms. Patient verbalized understanding. This case was discussed in detail with the attending ED physician, Dr. German. Presentation, findings, and treatment plan discussed in detail as well. Disposition Clinical Impression: Infected laceration Disposition: HOME SELF-CARE Instructions (If sedation given, give patient instructions): Laceration (ED), Stitches Removal (ED) Additional Instructions: Return to the emergency department with any new, worsening, or concerning symptoms. Take the antibiotic as prescribed for 5 days. Alternate with ibuprofen and Tylenol as needed for pain relief. Follow up with your primary care provider in 1-2 days. Prescriptions: Cephalexin [Keflex] 500 mg PO Q6HR 5 Days #20 cap Is patient prescribed a controlled substance at d/c from ED?: No Referrals: None,Stated [Primary Care Provider] - 1-2 days
[2022-08-06 15:38] VITALS: PULSE 70; RESP 16; TEMP 99
== END 2022-08-06 15:38 | disposition home or self-care (01) ==
LOC: EC 13:57
DX: L08.9 Local infection of the skin and subcutaneous tissue, unspecified (principal); F12.90 Cannabis use, unspecified, uncomplicated; F17.200 Nicotine dependence, unspecified, uncomplicated; Z86.59 Personal history of other mental and behavioral disorders
CPT/HCPCS: 99283